=== PATIENT | female | born 1950 | race Caucasian/White ===

== ENCOUNTER → 2017-11-04 08:15 | Outpatient (CLI) | payer MEDICARE, OTHER, SELFPAY ==
[2017-11-04 09:22] LABS: Add Manual Diff / Slide Review NO; Basophils Percent Auto 0.5 % (0-2); Eosinophils Percent Auto 1.7 % (2-4); Hematocrit 40.2 % (36-46); Hemoglobin 13.5 g/dL (12.0-16.0); Lymphocytes Percent Auto 31.1 % (25-40); Mean Corpuscular HGB Conc 33.7 % (30-36); Mean Corpuscular Hemoglobin 30.7 PG (26-34); Mean Corpuscular Volume 91.1 fL (80-100); Monocytes Percent Auto 6.4 % (3-14); Neutrophils Absolute Auto 3000 /uL (3000-5900); Neutrophils Percent Auto 60.3 % (50-75); Platelet Count 271 X10^3/uL (150-400); Red Blood Cell Count 4.41 X10^6/uL (4.0-5.2); Red Cell Distribution Width 14.3 % (11.6-14.8)
[2017-11-04 09:30] LABS: Blood Urea Nitrogen 15 mg/dL (7-17); Carbon Dioxide 29 mmol/L (22-32); Chloride 107 mmol/L (98-107); Cholesterol 185 mg/dL (140-199); Estimated Glomerular Filt Rate > 60.0 mL/min (>60); Glucose 97 mg/dL (80-110); HDL Cholesterol 63 mg/dL (40-60); HEMOLYSIS < 15 (0-50); LDL Cholesterol Calculated 107 mg/dL (<100); Potassium 4.1 mmol/L (3.4-5.1); Sodium 145 mmol/L (137-145); Triglycerides 77 mg/dL (35-150)
[2017-11-04 09:53] LABS: Creatinine Urine Random 165.1 mg/dL
[2017-11-04 09:58] LABS: Microalbumi Creatinin Ratio Ur 5.4 ug/mg CR (<30); Microalbumin Urine Random 0.9 mg/dL (0-1.6)
== END ==
PROVIDERS: PCP Family Medicine; Visit Provider Registered Nurse
DX: I10 Essential (primary) hypertension (principal)
CPT/HCPCS: 36415; 80048; 80061; 82043; 82570; 85025

== ENCOUNTER → 2017-11-10 11:36 | Outpatient (CLI) | payer MEDICARE, OTHER, SELFPAY ==
--- NOTE | 2017-11-10 11:38 | DI.RAD.S_ITS ---
PROCEDURE: XR CHEST 2V INDICATIONS: Crackles on exam x2 weeks to left lung base TECHNIQUE: 2 views of the chest were acquired. COMPARISON: [facility], , CHEST 1 VIEW, 03/19/2015, 13:08. FINDINGS: Surgical changes and devices: None. Lungs and pleura: No pleural effusions or pneumothorax. Lungs are clear. Mediastinum: Mediastinal contours are normal. Heart size is normal. Bones and chest wall: No suspicious bony abnormalities. Soft tissues appear unremarkable. IMPRESSION: No acute cardiopulmonary pathology. Dictated by: Kenton Ruby M.D. on 11/10/2017 at 12:17 Approved by: Kenton Ruby M.D. on 11/10/2017 at 12:18
== END ==
PROVIDERS: PCP Family Medicine; Visit Provider Registered Nurse
DX: R09.89 Other specified symptoms and signs involving the circulatory and respiratory systems (principal)
CPT/HCPCS: 71046

== ENCOUNTER 2017-11-25 18:12 | Emergency (ER) | payer MEDICARE, OTHER, SELFPAY ==
[2017-11-25 18:14] VITALS: BP 155/78; PULSE 79; RESP 14; TEMP 37; O2SAT 98
--- NOTE | 2017-11-25 18:30 | ED.ABDPAIN ---
HPI - Abdominal Pain <Nupur Kim PA-C - Last Filed: 11/25/17 21:59> General Chief Complaint: Abdominal Pain Stated Complaint: PAIN LEFT ABDOMEN AND INTO BACK Time Seen by Provider: 11/25/17 18:30 Source: patient Mode of arrival: ambulatory Limitations: no limitations History of Present Illness HPI narrative: This 67-year-old female comes in due to 2 day history of left-sided abdominal pain that she can also feel in her left flank and back area. She states that this started last night. Pain was worse last night, increased with pressure ( she could lie on her stomach or that part of her back). She states that she felt pretty good most of the day with some low-grade nagging pain, but had significantly improved since last night. She states that pain has now been worsening again tonight. She denies any exacerbating or alleviating features aside from pressure on the area. She feels bloated. She denies any radiation of pain. She denies any fever, chills, or sweats. She has been eating and drinking normally today. She states that she has had some slight nausea, no vomiting. She had a normal bowel movement today, no blood in the stool. She has had some urinary frequency and urgency since last night, no dysuria or blood in the urine. She denies any new exercises or activity. She denies any new rash. She did travel to [place] over the weekend and had been eating different foods and had been drinking more alcohol ( 3 per day), but nothing to drink yesterday as usual. She states that her Etodolac was increased to 400 mg daily from 300 recently, no other medication changes, and she did not take that today. She denies any recent upper respiratory illness or cough. She denies any chest pain or dyspnea. No new pain or swelling in the extremities or other complaints on systems review such as rash. Related Data Home Medications Medication Instructions Recorded Confirmed cholecalciferol (vitamin D3) 1,000 unit PO QDAY #0 11/23/16 11/25/17 [Vitamin D3] multivitamin [Multiple Vitamins] 1 tab PO QDAY #0 11/23/16 11/25/17 magnesium-potassium 1 tab PO DAILY 11/10/17 11/25/17 Previous Rx's Medication Instructions Recorded escitalopram 20 mg tablet 20 mg PO QDAY #30 tab 08/09/17 etodolac 400 mg tablet 400 mg PO Q12H #60 tab 10/29/17 hydrocodone 5 mg-acetaminophen 325 1 tab PO HSP PRN #20 tab 10/29/17 mg tablet ciprofloxacin HCl 500 mg PO Q12H #14 tab 11/25/17 ondansetron [Zofran ODT] 4 mg PO Q6-8H PRN #8 tab 11/25/17 Allergies Allergy/AdvReac Type Severity Reaction Status Date / Time No Known Drug Allergies Allergy Verified 11/25/17 18:17 Review of Systems <Nupur Kim PA-C - Last Filed: 11/25/17 21:59> Review of Systems All systems reviewed & are unremarkable except as noted in HPI and below PFSH <Nupur Kim PA-C - Last Filed: 11/25/17 21:59> Comment: Occasional ETOH, no street drugs Exam <Nupur Kim PA-C - Last Filed: 11/25/17 21:59> Narrative Exam Narrative: GENERAL APPEARANCE: Patient sitting comfortably, in no distress. HEENT: PERRL, EOMI, no scleral icterus NECK: Supple LUNGS: Clear to auscultation bilaterally. HEART: Rate and rhythm regular, normal S1 and S2, no S3 or S4. ABDOMEN: Soft, nondistended, bowel sounds present x 4 quadrants, no masses palpable, no hepatosplenomegaly. Minimal L. LQ point tenderness without guarding or rebound EXTREMITIES: No edema, no cyanosis, no calf tenderness DERMATOLOGIC: No jaundice or exanthem NEUROLOGIC: Alert and oriented with normal speech and coordination Initial Vital Signs Initial Vital Signs: Vital Signs Temperature 98.6 F 11/25/17 18:14 Pulse Rate 79 11/25/17 18:14 Respiratory Rate 14 11/25/17 18:14 Blood Pressure 155/78 H 11/25/17 18:14 Pulse Oximetry 98 11/25/17 18:14 <Eliz Cortez DO - Last Filed: 11/26/17 06:30> Initial Vital Signs Initial Vital Signs: Vital Signs Temperature 98.6 F 11/25/17 18:14 Pulse Rate 79 11/25/17 18:14 Respiratory Rate 14 11/25/17 18:14 Blood Pressure 155/78 H 11/25/17 18:14 Pulse Oximetry 98 11/25/17 18:14 Course <Nupur Kim PA-C - Last Filed: 11/25/17 21:59> Additional Information: We reviewed lab and CT findings. She does have a dense cyst versus mass in the left kidney. I explained that this may very well have been present for some time and not necessarily the source of her pain. No other acute findings. Patient also has some bacteria in the urine. We discussed doing further workup including ultrasound tonight however she would like to treat for urinary infection and follow up on this with her PCP. We discussed that ultrasound can be done as an outpatient and this may need further workup. We also discussed need to return if any acutely worsening symptoms again and she is agreeable. She does take small amounts of [place] at home for her arthritis as needed, and was feeling more comfortable after a dose of this. Nausea resolved with Zofran. She will sampler pickup prescriptions for Zofran and antibiotic and start the antibiotic this evening. She will call her PCP in the morning for follow-up. Orders Ordered: Discontinued Medications Hydrocodone Bitart/Acetaminophen ([place] 5/325) 1 tab PO NOW ONE Stop: 11/25/17 18:49 Last Admin: 11/25/17 19:04 Dose: 1 tab Sodium Chloride (Normal Saline 0.9%) 1,000 mls @ 1,000 mls/hr IV BOLUS ONE Stop: 11/25/17 19:44 Last Infusion: 11/25/17 20:15 Dose: 0 mls/hr Admin: 11/25/17 19:05 Dose: 1,000 mls/hr Ondansetron HCl (Zofran) 4 mg IV NOW ONE Stop: 11/25/17 18:46 Last Admin: 11/25/17 19:05 Dose: 4 mg Vital Signs - 8 hr 11/25/17 18:14 11/25/17 20:29 Temperature 98.6 F 97.3 F L Pulse Rate 79 63 Respiratory Rate 14 14 Blood Pressure 155/78 H 161/82 H Pulse Oximetry 98 98 <Eliz Cortez DO - Last Filed: 11/26/17 06:30> Orders Ordered: Discontinued Medications Hydrocodone Bitart/Acetaminophen ([place] 5/325) 1 tab PO NOW ONE Stop: 11/25/17 18:49 Last Admin: 11/25/17 19:04 Dose: 1 tab Sodium Chloride (Normal Saline 0.9%) 1,000 mls @ 1,000 mls/hr IV BOLUS ONE Stop: 11/25/17 19:44 Last Infusion: 11/25/17 20:15 Dose: 0 mls/hr Admin: 11/25/17 19:05 Dose: 1,000 mls/hr Ondansetron HCl (Zofran) 4 mg IV NOW ONE Stop: 11/25/17 18:46 Last Admin: 11/25/17 19:05 Dose: 4 mg Vital Signs - 8 hr 11/25/17 18:14 11/25/17 20:29 Temperature 98.6 F 97.3 F L Pulse Rate 79 63 Respiratory Rate 14 14 Blood Pressure 155/78 H 161/82 H Pulse Oximetry 98 98 MDM - Abdominal Pain <Nupur Kim PA-C - Last Filed: 11/25/17 21:59> Lab Data Result diagrams: 11/25/17 18:50 11/25/17 18:50 Lab Results 11/25/17 11/25/17 11/25/17 Range/Units 18:50 18:50 18:50 WBC 7.6 (4.5-11.0) X10^3/uL RBC 4.43 (4.0-5.2) X10^6/uL Hgb 13.5 (12.0-16.0) g/dL Hct 40.4 (36-46) % MCV 91.3 (80-100) fL MCH 30.5 (26-34) PG MCHC 33.4 (30-36) % RDW 14.1 (11.6-14.8) % Plt Count 263 (150-400) X10^3/uL Neut % (Auto) 60.2 (50-75) % Lymph % (Auto) 30.8 (25-40) % [place] % (Auto) 6.9 (3-14) % Eos % (Auto) 1.3 L (2-4) % Baso % (Auto) 0.8 (0-2) % Neut # (Auto) 4600 (3764-4164) /uL Sodium 140 (137-145) mmol/L Potassium 3.9 (3.4-5.1) mmol/L Chloride 105 (98-107) mmol/L Carbon Dioxide 26 (22-32) mmol/L BUN 19 H (7-17) mg/dL Creatinine 0.50 L (0.52-1.04) mg/dL Estimated GFR > 60.0 (>60) mL/min BUN/Creatinine Ratio 38.0 H (6-22) Glucose 101 (80-110) mg/dL Calcium 9.3 (8.4-10.2) mg/dL Total Bilirubin 0.3 (0.2-1.3) mg/dL AST 26 (14-36) IU/L ALT 24 (9-52) IU/L Alkaline Phosphatase 72 (38-126) U/L Total Protein 6.6 (6.3-8.2) g/dL Albumin 4.1 (3.5-5.0) g/dL Globulin 2.5 (1.7-4.1) g/dL Albumin/Globulin Ratio 1.6 (1.0-2.8) Lipase 87 (23-300) U/L Urine RBC 0-1/hpf (0-5/HPF) Urine WBC 5-10/hpf H (0-5/HPF) Ur Squamous Epith Cells 0-1 /hpf Urine Bacteria Occasional (0-1) (None) Ur Culture Indicated? Specimen cultured Micro UA Comment Not Reportable Point of care testing: Urine Dip Bedside Urine Glucose Negative Bedside Urine Bilirubin +++ 4 Bedside Urine Ketone - Negative Urine Specific [place] 1.020 Bedside Urine Occult Blood - Negative Bedside Urine pH 6.0 Bedside Urine Protein - Negative Bedside Urine Urobilinogen - Negative Bedside Urine Nitrite - Negative Bedside Urine Leukocytes + [address] scan - abdomen: Radiologist's impression: [place] [address] CT Scan Report Signed Patient: Jada Leon [facility]#: [id number] : 1950cct:[id number] Age/Sex: 67 / FDate of Service: 11/25/17 Loc: ED Accession Number: [id number] Procedure: CT abdomen pelvis w con Ordering Provider: Nupur Kim P.A-C PROCEDURE: CT ABDOMEN PELVIS W CON INDICATIONS: Left upper quadrant and flank pain TECHNIQUE: After the administration of intravenous contrast, 5 mm thick sections acquired from the diaphragm to the symphysis. 5 mm coronal and sagittal reformats were acquired. For radiation dose reduction, the following was used: automated exposure control, adjustment of mA and/or kV according to patient size. COMPARISON: None. FINDINGS: Image quality: Excellent. ABDOMEN: Lung bases: There is mild atelectasis and scarring in the lung bases. Heart size is normal. A small hiatal hernia is present. Solid organs: There is a punctate hyperdensity in the right hepatic dome which is nonspecific but likely represents a cyst. Gallbladder appears within normal limits without calcified gallstones. Biliary system is non dilated. Pancreas enhances normally. Spleen is normal in size and enhancement. There is nodular thickening of the left adrenal gland. Kidneys demonstrate no hydronephrosis. There are bilateral parapelvic cysts. Within the left renal cortex of the interpolar region, there is an ovoid hypodense structure measuring 2.1 x 1.7 cm which may represent a hyperdense cyst or solid mass. Peritoneum and bowel: Bowel loops demonstrate normal wall thickness and caliber. No evidence of appendicitis. There is colonic diverticulosis without acute diverticulitis. No free fluid or air. Nodes and vessels: No retroperitoneal or mesenteric adenopathy by size criteria. Aorta and inferior vena cava are normal in size. Miscellaneous: No ventral hernias. PELVIS: Genitourinary: Bladder wall thickness is normal. Miscellaneous: No inguinal hernias or adenopathy. Bones: No suspicious bony lesions. No vertebral body compression fractures. IMPRESSION: 1. Hyperdense left renal cyst or solid mass. Initial further evaluation may be obtained with ultrasound. 2. Colonic diverticulosis without acute diverticulitis. 3. Small hiatal hernia. Dictated by: Moises Lizarraga M.D. on 11/25/2017 at 19:28 Approved by: Moises Lizarraga M.D. on 11/25/2017 at 19:33 <Eliz Cortez DO - Last Filed: 11/26/17 06:30> Lab Data Lab Results 11/25/17 11/25/17 11/25/17 Range/Units 18:50 18:50 18:50 WBC 7.6 (4.5-11.0) X10^3/uL RBC 4.43 (4.0-5.2) X10^6/uL Hgb 13.5 (12.0-16.0) g/dL Hct 40.4 (36-46) % MCV 91.3 (80-100) fL MCH 30.5 (26-34) PG MCHC 33.4 (30-36) % RDW 14.1 (11.6-14.8) % Plt Count 263 (150-400) X10^3/uL Neut % (Auto) 60.2 (50-75) % Lymph % (Auto) 30.8 (25-40) % [place] % (Auto) 6.9 (3-14) % Eos % (Auto) 1.3 L (2-4) % Baso % (Auto) 0.8 (0-2) % Neut # (Auto) 4600 (0380-0223) /uL Sodium 140 (137-145) mmol/L Potassium 3.9 (3.4-5.1) mmol/L Chloride 105 (98-107) mmol/L Carbon Dioxide 26 (22-32) mmol/L BUN 19 H (7-17) mg/dL Creatinine 0.50 L (0.52-1.04) mg/dL Estimated GFR > 60.0 (>60) mL/min BUN/Creatinine Ratio 38.0 H (6-22) Glucose 101 (80-110) mg/dL Calcium 9.3 (8.4-10.2) mg/dL Total Bilirubin 0.3 (0.2-1.3) mg/dL AST 26 (14-36) IU/L ALT 24 (9-52) IU/L Alkaline Phosphatase 72 (38-126) U/L Total Protein 6.6 (6.3-8.2) g/dL Albumin 4.1 (3.5-5.0) g/dL Globulin 2.5 (1.7-4.1) g/dL Albumin/Globulin Ratio 1.6 (1.0-2.8) Lipase 87 (23-300) U/L Urine RBC 0-1/hpf (0-5/HPF) Urine WBC 5-10/hpf H (0-5/HPF) Ur Squamous Epith Cells 0-1 /hpf Urine Bacteria Occasional (0-1) (None) Ur Culture Indicated? Specimen cultured Micro UA Comment Not Reportable Point of care testing: Urine Dip Bedside Urine Glucose Negative Bedside Urine Bilirubin +++ 4 Bedside Urine Ketone - Negative Urine Specific [place] 1.020 Bedside Urine Occult Blood - Negative Bedside Urine pH 6.0 Bedside Urine Protein - Negative Bedside Urine Urobilinogen - Negative Bedside Urine Nitrite - Negative Bedside Urine Leukocytes + 70 Esterase Discharge Plan Departure Patient Disposition: Home Clinical Impression: Left lateral abdominal pain Discharge Date/Time: 11/25/17 20:29 Interventions: ED Discharge Assessment Last Done: 11/25/17 20:29 Instructions: DI for Abdominal Pain-Adult Activity Restrictions/Additional Instructions: Please return as we talked about if you have any acutely worsening symptoms. Otherwise, please call your primary care provider tomorrow and let them know you were seen in the emergency room. I have prescribed the antibiotic Cipro, which you have taken without problems before, for possible kidney infection. I have also prescribed nausea medicine for you (the same as you had in the IV), and you can take your hydrocodone / acetaminophen for pain as needed along with your usual Etodolac. You should follow-up in a few days for recheck on your infection as the urine cultures will be back then. You also need to have a follow-up imaging study on your left kidney as there is a lump there and the radiologist is not sure whether it is a cyst or solid. We frequently see spots on the kidneys and this may not be related to your pain, but it is very important that you follow-up. The radiologist has recommended an ultrasound for this, which can be done as an outpatient. Prescriptions: New ciprofloxacin HCl 500 mg tablet 500 mg PO Q12H Qty: 14 RF: 0 ondansetron [Zofran ODT] 4 mg tablet,disintegrating 4 mg PO Q6-8H PRN (Reason: nausea and vomiting) Qty: 8 RF: 0 No Action multivitamin [Multiple Vitamins] 1 EACH tablet 1 tab PO QDAY Qty: 0 RF: 0 cholecalciferol (vitamin D3) [Vitamin D3] 1,000 UNIT tablet 1,000 unit PO QDAY Qty: 0 RF: 0 escitalopram oxalate 20 mg tablet 20 mg PO QDAY Qty: 30 RF: 5 magnesium-potassium 1 tab PO DAILY RF: 0 etodolac 400 mg tablet 400 mg PO Q12H Qty: 60 RF: 3 hydrocodone-acetaminophen 5-325 mg tablet 1 tab PO HSP PRN (Reason: pain) Qty: 20 RF: 0 Referrals: Nadia Cat ARNP [[facility] [employer] [facility]] - <Eliz Cortez DO - Last Filed: 11/26/17 06:30> Cosign ED Attending Cosignature Attestation: I was immediately available in the department for consultation. This documentation has been reviewed and I agree with assessment and plan. Supervised by Eliz Cortez DO
--- NOTE | 2017-11-25 18:45 | DI.CT.S_ITS ---
PROCEDURE: CT ABDOMEN PELVIS W CON INDICATIONS: Left upper quadrant and flank pain TECHNIQUE: After the administration of intravenous contrast, 5 mm thick sections acquired from the diaphragm to the symphysis. 5 mm coronal and sagittal reformats were acquired. For radiation dose reduction, the following was used: automated exposure control, adjustment of mA and/or kV according to patient size. COMPARISON: None. FINDINGS: Image quality: Excellent. ABDOMEN: Lung bases: There is mild atelectasis and scarring in the lung bases. Heart size is normal. A small hiatal hernia is present. Solid organs: There is a punctate hyperdensity in the right hepatic dome which is nonspecific but likely represents a cyst. Gallbladder appears within normal limits without calcified gallstones. Biliary system is non dilated. Pancreas enhances normally. Spleen is normal in size and enhancement. There is nodular thickening of the left adrenal gland. Kidneys demonstrate no hydronephrosis. There are bilateral parapelvic cysts. Within the left renal cortex of the interpolar region, there is an ovoid hypodense structure measuring 2.1 x 1.7 cm which may represent a hyperdense cyst or solid mass. Peritoneum and bowel: Bowel loops demonstrate normal wall thickness and caliber. No evidence of appendicitis. There is colonic diverticulosis without acute diverticulitis. No free fluid or air. Nodes and vessels: No retroperitoneal or mesenteric adenopathy by size criteria. Aorta and inferior vena cava are normal in size. Miscellaneous: No ventral hernias. PELVIS: Genitourinary: Bladder wall thickness is normal. Miscellaneous: No inguinal hernias or adenopathy. Bones: No suspicious bony lesions. No vertebral body compression fractures. IMPRESSION: 1. Hyperdense left renal cyst or solid mass. Initial further evaluation may be obtained with ultrasound. 2. Colonic diverticulosis without acute diverticulitis. 3. Small hiatal hernia. Dictated by: Moises Lizarraga M.D. on 11/25/2017 at 19:28 Approved by: Moises Lizarraga M.D. on 11/25/2017 at 19:33
--- NOTE | 2017-11-25 18:58 | ED_ITS ---
HPI - Abdominal Pain <Nupur Kim PA-C - Last Filed: 11/25/17 21:59> General Chief Complaint: Abdominal Pain Stated Complaint: PAIN LEFT ABDOMEN AND INTO BACK Time Seen by Provider: 11/25/17 18:30 Source: patient Mode of arrival: ambulatory Limitations: no limitations History of Present Illness HPI narrative: This 67-year-old female comes in due to 2 day history of left- sided abdominal pain that she can also feel in her left flank and back area. She states that this started last night. Pain was worse last night, increased with pressure ( she could lie on her stomach or that part of her back). She states that she felt pretty good most of the day with some low-grade nagging pain, but had significantly improved since last night. She states that pain has now been worsening again tonight. She denies any exacerbating or alleviating features aside from pressure on the area. She feels bloated. She denies any radiation of pain. She denies any fever, chills, or sweats. She has been eating and drinking normally today. She states that she has had some slight nausea, no vomiting. She had a normal bowel movement today, no blood in the stool. She has had some urinary frequency and urgency since last night, no dysuria or blood in the urine. She denies any new exercises or activity. She denies any new rash. She did travel to [place] over the weekend and had been eating different foods and had been drinking more alcohol ( 3 per day), but nothing to drink yesterday as usual. She states that her Etodolac was increased to 400 mg daily from 300 recently, no other medication changes, and she did not take that today. She denies any recent upper respiratory illness or cough. She denies any chest pain or dyspnea. No new pain or swelling in the extremities or other complaints on systems review such as rash. Related Data Home Medications Medication Instructions Recorded Confirmed cholecalciferol (vitamin D3) 1,000 unit PO QDAY #0 11/23/16 11/25/17 [Vitamin D3] multivitamin [Multiple Vitamins] 1 tab PO QDAY #0 11/23/16 11/25/17 magnesium-potassium 1 tab PO DAILY 11/10/17 11/25/17 Previous Rx's Medication Instructions Recorded escitalopram 20 mg tablet 20 mg PO QDAY #30 tab 08/09/17 etodolac 400 mg tablet 400 mg PO Q12H #60 tab 10/29/17 hydrocodone 5 mg-acetaminophen 325 1 tab PO HSP PRN #20 tab 10/29/17 mg tablet ciprofloxacin HCl 500 mg PO Q12H #14 tab 11/25/17 ondansetron [Zofran ODT] 4 mg PO Q6-8H PRN #8 tab 11/25/17 Allergies Allergy/AdvReac Type Severity Reaction Status Date / Time No Known Drug Allergies Allergy Verified 11/25/17 18:17 Review of Systems <Nupur Kim PA-C - Last Filed: 11/25/17 21:59> Review of Systems All systems reviewed & are unremarkable except as noted in HPI and below PFSH <Nupur Kim PA-C - Last Filed: 11/25/17 21:59> Comment: Occasional ETOH, no street drugs Exam <Nupur Kim PA-C - Last Filed: 11/25/17 21:59> Narrative Exam Narrative: GENERAL APPEARANCE: Patient sitting comfortably, in no distress. HEENT: PERRL, EOMI, no scleral icterus NECK: Supple LUNGS: Clear to auscultation bilaterally. HEART: Rate and rhythm regular, normal S1 and S2, no S3 or S4. ABDOMEN: Soft, nondistended, bowel sounds present x 4 quadrants, no masses palpable, no hepatosplenomegaly. Minimal L. LQ point tenderness without guarding or rebound EXTREMITIES: No edema, no cyanosis, no calf tenderness DERMATOLOGIC: No jaundice or exanthem NEUROLOGIC: Alert and oriented with normal speech and coordination Initial Vital Signs Initial Vital Signs: Vital Signs Temperature 98.6 F 11/25/17 18:14 Pulse Rate 79 11/25/17 18:14 Respiratory Rate 14 11/25/17 18:14 Blood Pressure 155/78 H 11/25/17 18:14 Pulse Oximetry 98 11/25/17 18:14 <Eliz Cortez DO - Last Filed: 11/26/17 06:30> Initial Vital Signs Initial Vital Signs: Vital Signs Temperature 98.6 F 11/25/17 18:14 Pulse Rate 79 11/25/17 18:14 Respiratory Rate 14 11/25/17 18:14 Blood Pressure 155/78 H 11/25/17 18:14 Pulse Oximetry 98 11/25/17 18:14 Course <Nupur Kim PA-C - Last Filed: 11/25/17 21:59> Additional Information: We reviewed lab and CT findings. She does have a dense cyst versus mass in the left kidney. I explained that this may very well have been present for some time and not necessarily the source of her pain. No other acute findings. Patient also has some bacteria in the urine. We discussed doing further workup including ultrasound tonight however she would like to treat for urinary infection and follow up on this with her PCP. We discussed that ultrasound can be done as an outpatient and this may need further workup. We also discussed need to return if any acutely worsening symptoms again and she is agreeable. She does take small amounts of [place] at home for her arthritis as needed, and was feeling more comfortable after a dose of this. Nausea resolved with Zofran. She will berry picker prescriptions for Zofran and antibiotic and start the antibiotic this evening. She will call her PCP in the morning for follow-up. Orders Ordered: Discontinued Medications Hydrocodone Bitart/Acetaminophen ([place] 5/325) 1 tab PO NOW ONE Stop: 11/25/17 18:49 Last Admin: 11/25/17 19:04 Dose: 1 tab Sodium Chloride (Normal Saline 0.9%) 1,000 mls @ 1,000 mls/hr IV BOLUS ONE Stop: 11/25/17 19:44 Last Infusion: 11/25/17 20:15 Dose: 0 mls/hr Admin: 11/25/17 19:05 Dose: 1,000 mls/hr Ondansetron HCl (Zofran) 4 mg IV NOW ONE Stop: 11/25/17 18:46 Last Admin: 11/25/17 19:05 Dose: 4 mg Vital Signs - 8 hr 11/25/17 18:14 11/25/17 20:29 Temperature 98.6 F 97.3 F L Pulse Rate 79 63 Respiratory Rate 14 14 Blood Pressure 155/78 H 161/82 H Pulse Oximetry 98 98 <Eliz Cortez DO - Last Filed: 11/26/17 06:30> Orders Ordered: Discontinued Medications Hydrocodone Bitart/Acetaminophen ([place] 5/325) 1 tab PO NOW ONE Stop: 11/25/17 18:49 Last Admin: 11/25/17 19:04 Dose: 1 tab Sodium Chloride (Normal Saline 0.9%) 1,000 mls @ 1,000 mls/hr IV BOLUS ONE Stop: 11/25/17 19:44 Last Infusion: 11/25/17 20:15 Dose: 0 mls/hr Admin: 11/25/17 19:05 Dose: 1,000 mls/hr Ondansetron HCl (Zofran) 4 mg IV NOW ONE Stop: 11/25/17 18:46 Last Admin: 11/25/17 19:05 Dose: 4 mg Vital Signs - 8 hr 11/25/17 18:14 11/25/17 20:29 Temperature 98.6 F 97.3 F L Pulse Rate 79 63 Respiratory Rate 14 14 Blood Pressure 155/78 H 161/82 H Pulse Oximetry 98 98 MDM - Abdominal Pain <Nupur Kim PA-C - Last Filed: 11/25/17 21:59> Lab Data Result diagrams: 11/25/17 18:50 11/25/17 18:50 Lab Results 11/25/17 11/25/17 11/25/17 Range/Units 18:50 18:50 18:50 WBC 7.6 (4.5-11.0) X10^3/uL RBC 4.43 (4.0-5.2) X10^6/uL Hgb 13.5 (12.0-16.0) g/dL Hct 40.4 (36-46) % MCV 91.3 (80-100) fL MCH 30.5 (26-34) PG MCHC 33.4 (30-36) % RDW 14.1 (11.6-14.8) % Plt Count 263 (150-400) X10^3/uL Neut % (Auto) 60.2 (50-75) % Lymph % (Auto) 30.8 (25-40) % Will % (Auto) 6.9 (3-14) % Eos % (Auto) 1.3 L (2-4) % Baso % (Auto) 0.8 (0-2) % Neut # (Auto) 4600 (1437-7169) /uL Sodium 140 (137-145) mmol/L Potassium 3.9 (3.4-5.1) mmol/L Chloride 105 (98-107) mmol/L Carbon Dioxide 26 (22-32) mmol/L BUN 19 H (7-17) mg/dL Creatinine 0.50 L (0.52-1.04) mg/dL Estimated GFR > 60.0 (>60) mL/min BUN/Creatinine Ratio 38.0 H (6-22) Glucose 101 (80-110) mg/dL Calcium 9.3 (8.4-10.2) mg/dL Total Bilirubin 0.3 (0.2-1.3) mg/dL AST 26 (14-36) IU/L ALT 24 (9-52) IU/L Alkaline Phosphatase 72 (38-126) U/L Total Protein 6.6 (6.3-8.2) g/dL Albumin 4.1 (3.5-5.0) g/dL Globulin 2.5 (1.7-4.1) g/dL Albumin/Globulin Ratio 1.6 (1.0-2.8) Lipase 87 (23-300) U/L Urine RBC 0-1/hpf (0-5/HPF) Urine WBC 5-10/hpf H (0-5/HPF) Ur Squamous Epith Cells 0-1 /hpf Urine Bacteria Occasional (0-1) (None) Ur Culture Indicated? Specimen cultured Micro UA Comment Not Reportable Point of care testing: Urine Dip Bedside Urine Glucose Negative Bedside Urine Bilirubin +++ 4 Bedside Urine Ketone - Negative Urine Specific [place] 1.020 Bedside Urine Occult Blood - Negative Bedside Urine pH 6.0 Bedside Urine Protein - Negative Bedside Urine Urobilinogen - Negative Bedside Urine Nitrite - Negative Bedside Urine Leukocytes + [address] scan - abdomen: Radiologist's impression: [place] [address] CT Scan Report Signed Patient: Jada Leon [facility]#: [id number] : 1950cct:[id number] Age/Sex: 67 / FDate of Service: 11/25/17 Loc: ED Accession Number: [id number] Procedure: CT abdomen pelvis w con Ordering Provider: Nupur Kim P.A-C PROCEDURE: CT ABDOMEN PELVIS W CON INDICATIONS: Left upper quadrant and flank pain TECHNIQUE: After the administration of intravenous contrast, 5 mm thick sections acquired from the diaphragm to the symphysis. 5 mm coronal and sagittal reformats were acquired. For radiation dose reduction, the following was used: automated exposure control, adjustment of mA and/or kV according to patient size. COMPARISON: None. FINDINGS: Image quality: Excellent. ABDOMEN: Lung bases: There is mild atelectasis and scarring in the lung bases. Heart size is normal. A small hiatal hernia is present. Solid organs: There is a punctate hyperdensity in the right hepatic dome which is nonspecific but likely represents a cyst. Gallbladder appears within normal limits without calcified gallstones. Biliary system is non dilated. Pancreas enhances normally. Spleen is normal in size and enhancement. There is nodular thickening of the left adrenal gland. Kidneys demonstrate no hydronephrosis. There are bilateral parapelvic cysts. Within the left renal cortex of the interpolar region, there is an ovoid hypodense structure measuring 2.1 x 1.7 cm which may represent a hyperdense cyst or solid mass. Peritoneum and bowel: Bowel loops demonstrate normal wall thickness and caliber. No evidence of appendicitis. There is colonic diverticulosis without acute diverticulitis. No free fluid or air. Nodes and vessels: No retroperitoneal or mesenteric adenopathy by size criteria. Aorta and inferior vena cava are normal in size. Miscellaneous: No ventral hernias. PELVIS: Genitourinary: Bladder wall thickness is normal. Miscellaneous: No inguinal hernias or adenopathy. Bones: No suspicious bony lesions. No vertebral body compression fractures. IMPRESSION: 1. Hyperdense left renal cyst or solid mass. Initial further evaluation may be obtained with ultrasound. 2. Colonic diverticulosis without acute diverticulitis. 3. Small hiatal hernia. Dictated by: Moises Lizarraga M.D. on 11/25/2017 at 19:28 Approved by: Moises Lizarraga M.D. on 11/25/2017 at 19:33 <Eliz Cortez DO - Last Filed: 11/26/17 06:30> Lab Data Lab Results 11/25/17 11/25/17 11/25/17 Range/Units 18:50 18:50 18:50 WBC 7.6 (4.5-11.0) X10^3/uL RBC 4.43 (4.0-5.2) X10^6/uL Hgb 13.5 (12.0-16.0) g/dL Hct 40.4 (36-46) % MCV 91.3 (80-100) fL MCH 30.5 (26-34) PG MCHC 33.4 (30-36) % RDW 14.1 (11.6-14.8) % Plt Count 263 (150-400) X10^3/uL Neut % (Auto) 60.2 (50-75) % Lymph % (Auto) 30.8 (25-40) % Will % (Auto) 6.9 (3-14) % Eos % (Auto) 1.3 L (2-4) % Baso % (Auto) 0.8 (0-2) % Neut # (Auto) 4600 (4436-7600) /uL Sodium 140 (137-145) mmol/L Potassium 3.9 (3.4-5.1) mmol/L Chloride 105 (98-107) mmol/L Carbon Dioxide 26 (22-32) mmol/L BUN 19 H (7-17) mg/dL Creatinine 0.50 L (0.52-1.04) mg/dL Estimated GFR > 60.0 (>60) mL/min BUN/Creatinine Ratio 38.0 H (6-22) Glucose 101 (80-110) mg/dL Calcium 9.3 (8.4-10.2) mg/dL Total Bilirubin 0.3 (0.2-1.3) mg/dL AST 26 (14-36) IU/L ALT 24 (9-52) IU/L Alkaline Phosphatase 72 (38-126) U/L Total Protein 6.6 (6.3-8.2) g/dL Albumin 4.1 (3.5-5.0) g/dL Globulin 2.5 (1.7-4.1) g/dL Albumin/Globulin Ratio 1.6 (1.0-2.8) Lipase 87 (23-300) U/L Urine RBC 0-1/hpf (0-5/HPF) Urine WBC 5-10/hpf H (0-5/HPF) Ur Squamous Epith Cells 0-1 /hpf Urine Bacteria Occasional (0-1) (None) Ur Culture Indicated? Specimen cultured Micro UA Comment Not Reportable Point of care testing: Urine Dip Bedside Urine Glucose Negative Bedside Urine Bilirubin +++ 4 Bedside Urine Ketone - Negative Urine Specific [place] 1.020 Bedside Urine Occult Blood - Negative Bedside Urine pH 6.0 Bedside Urine Protein - Negative Bedside Urine Urobilinogen - Negative Bedside Urine Nitrite - Negative Bedside Urine Leukocytes + 70 Esterase Discharge Plan Departure Patient Disposition: Home Clinical Impression: Left lateral abdominal pain Discharge Date/Time: 11/25/17 20:29 Interventions: ED Discharge Assessment Last Done: 11/25/17 20:29 Instructions: DI for Abdominal Pain-Adult Activity Restrictions/Additional Instructions: Please return as we talked about if you have any acutely worsening symptoms. Otherwise, please call your primary care provider tomorrow and let them know you were seen in the emergency room. I have prescribed the antibiotic Cipro, which you have taken without problems before, for possible kidney infection. I have also prescribed nausea medicine for you (the same as you had in the IV), and you can take your hydrocodone / acetaminophen for pain as needed along with your usual Etodolac. You should follow-up in a few days for recheck on your infection as the urine cultures will be back then. You also need to have a follow-up imaging study on your left kidney as there is a lump there and the radiologist is not sure whether it is a cyst or solid. We frequently see spots on the kidneys and this may not be related to your pain, but it is very important that you follow-up. The radiologist has recommended an ultrasound for this, which can be done as an outpatient. Prescriptions: New ciprofloxacin HCl 500 mg tablet 500 mg PO Q12H Qty: 14 RF: 0 ondansetron [Zofran ODT] 4 mg tablet,disintegrating 4 mg PO Q6-8H PRN (Reason: nausea and vomiting) Qty: 8 RF: 0 No Action multivitamin [Multiple Vitamins] 1 EACH tablet 1 tab PO QDAY Qty: 0 RF: 0 cholecalciferol (vitamin D3) [Vitamin D3] 1,000 UNIT tablet 1,000 unit PO QDAY Qty: 0 RF: 0 escitalopram oxalate 20 mg tablet 20 mg PO QDAY Qty: 30 RF: 5 magnesium-potassium 1 tab PO DAILY RF: 0 etodolac 400 mg tablet 400 mg PO Q12H Qty: 60 RF: 3 hydrocodone-acetaminophen 5-325 mg tablet 1 tab PO HSP PRN (Reason: pain) Qty: 20 RF: 0 Referrals: Nadia Cat ARNP [[employer]] - <Eliz Cortez DO - Last Filed: 11/26/17 06:30> Cosign ED Attending Cosignature Attestation: I was immediately available in the department for consultation. This documentation has been reviewed and I agree with assessment and plan. Supervised by Eliz Cortez DO
[2017-11-25 19:00] LABS: Add Manual Diff / Slide Review NO; Basophils Percent Auto 0.8 % (0-2); Eosinophils Percent Auto 1.3 % (2-4); Hematocrit 40.4 % (36-46); Hemoglobin 13.5 g/dL (12.0-16.0); Lymphocytes Percent Auto 30.8 % (25-40); Mean Corpuscular HGB Conc 33.4 % (30-36); Mean Corpuscular Hemoglobin 30.5 PG (26-34); Mean Corpuscular Volume 91.3 fL (80-100); Monocytes Percent Auto 6.9 % (3-14); Neutrophils Absolute Auto 4600 /uL (3000-5900); Neutrophils Percent Auto 60.2 % (50-75); Platelet Count 263 X10^3/uL (150-400); Red Blood Cell Count 4.43 X10^6/uL (4.0-5.2); Red Cell Distribution Width 14.1 % (11.6-14.8); White Blood Cell Count 7.6 X10^3/uL (4.5-11.0)
[2017-11-25] MEDS: HYDROCODONE/ACET 5/325 TABLET 1 TAB PO (19:04)
[2017-11-25] MEDS: SODIUM CHLORIDE 0.9% 1,000 ML 1000 ML IV (19:05)
[2017-11-25] MEDS: ONDANSETRON 4 MG/2 ML INJ IV (19:05)
[2017-11-25 19:09] LABS: Bacteria Urine Occasional (0-1); Culture Indicated Urine Specimen Cultured; RBC Urine 0-1/HPF (0-5/HPF); Squamous Epithelial Cell Urine 0-1 /HPF; WBC Urine 5-10/HPF (0-5/HPF)
[2017-11-25 19:11] LABS: Alanine Aminotransferase 24 IU/L (9-52); Albumin 4.1 g/dL (3.5-5.0); Albumin Globulin Ratio 1.6 (1.0-2.8); Alkaline Phosphatase 72 U/L (38-126); Aspartate Aminotransferase 26 IU/L (14-36); Bilirubin Total 0.3 mg/dL (0.2-1.3); Blood Urea Nitrogen 19 mg/dL (7-17); Calcium 9.3 mg/dL (8.4-10.2); Carbon Dioxide 26 mmol/L (22-32); Chloride 105 mmol/L (98-107); Estimated Glomerular Filt Rate > 60.0 mL/min (>60); Globulin 2.5 g/dL (1.7-4.1); Glucose 101 mg/dL (80-110); HEMOLYSIS 33 (0-50); Lipase 87 U/L (23-300); Potassium 3.9 mmol/L (3.4-5.1); Sodium 140 mmol/L (137-145); Total Protein 6.6 g/dL (6.3-8.2)
[2017-11-25 20:29] VITALS: BP 161/82; PULSE 63; RESP 14; TEMP 36.3; O2SAT 98
== END 2017-11-25 20:29 | disposition home or self-care (01) ==
PROVIDERS: Emergency Provider Internal Medicine; Family Provider Family Medicine; PCP Family Medicine
DX: R10.9 Unspecified abdominal pain (principal)
CPT/HCPCS: 36591; 74177; 80053; 81003; 81015; 83690; 85025; 87086; 96361; 96374; 99283; 99285; J2405; Q9967

== ENCOUNTER → 2017-12-02 13:37 | Outpatient (CLI) | payer MEDICARE, OTHER, SELFPAY ==
--- NOTE | 2017-12-02 13:39 | DI.US.S_ITS ---
PROCEDURE: US RENAL COMPLETE INDICATIONS: Renal mass noted on CT TECHNIQUE: Real-time scanning was performed of the kidneys and bladder, with image documentation. COMPARISON: [facility], CT, CT ABDOMEN PELVIS W CON, 11/25/2017, 18:47. FINDINGS: Kidneys: There is a hypoechoic solid appearing mass that measures 2.6 by 2 x 2 centimeters along the mid to inferior aspect of the left kidney cortex. This corresponds to the mass seen on CT. Kidneys are normal in size. Right kidney measures 11.9 cm long; left kidney measures 12.4 cm long. Right renal cortical thickness is 1.7 cm; left renal cortical thickness is 1.8 cm. Renal cortical echotexture is normal. No hydronephrosis or nephrolithiasis. Bladder: Pre-void bladder volume is 27 mL. No postvoid residual patient was obtained. Miscellaneous: No free pelvic fluid. IMPRESSION: 2.6 cm solid appearing mass confirmed at the mid to inferior aspect of the left kidney. A urology consult is now recommended. Dictated by: Kaden Albarado M.D. on 12/02/2017 at 13:42 Approved by: Kaden Albarado M.D. on 12/02/2017 at 13:47
== END ==
PROVIDERS: Family Provider Family Medicine; PCP Family Medicine; Visit Provider Registered Nurse
DX: N28.9 Disorder of kidney and ureter, unspecified (principal)
CPT/HCPCS: 76770

== ENCOUNTER → 2020-01-10 06:49 | Outpatient (CLI) | payer MEDICARE, OTHER, SELFPAY ==
[2020-01-10 07:01] LABS: Bacteria Urine None Seen; RBC Urine None Seen (0-5/HPF)
[2020-01-10 08:17] LABS: Appearance Urine UA CLEAR; Bilirubin Urine UA 3+ (NEGATIVE); Color Urine UA YELLOW; Glucose Urine UA NEGATIVE (Negative); Ketones Urine UA NEGATIVE (NEGATIVE); Leukocyte Esterase Urine UA 1+ (NEGATIVE); Nitrite Urine UA NEGATIVE (Negative); Occult Blood Urine UA NEGATIVE (Negative); Protein Urine UA NEGATIVE (Negative); Specific Gravity Urine UA 1.025 (1.000-1.035); Urobilinogen Urine UA 0.2 E.U./dL (0.2)
[2020-01-10 08:21] LABS: Add Manual Diff / Slide Review NO; Basophils Absolute Auto 0 /uL (0-100); Basophils Percent Auto 0.6 % (0-2); Eosinophils Absolute Auto 100 /uL (0-450); Eosinophils Percent Auto 2.2 % (2-4); Hematocrit 41.2 % (36-46); Hemoglobin 13.6 g/dL (12.0-16.0); Lymphocytes Absolute Auto 2100 /uL (1100-4500); Lymphocytes Percent Auto 36.8 % (25-40); Mean Corpuscular Hemoglobin 29.8 PG (26-34); Mean Corpuscular Volume 90.5 fL (80-100); Monocytes Absolute Auto 400 /uL (0-900); Monocytes Percent Auto 6.4 % (3-14); Neutrophils Absolute Auto 3000 /uL (1500-7000); Platelet Count 263 X10^3/uL (150-400); Red Blood Cell Count 4.55 X10^6/uL (4.0-5.2); Red Cell Distribution Width 14.4 % (11.6-14.8); White Blood Cell Count 5.6 X10^3/uL (4.5-11.0)
[2020-01-10 08:26] LABS: Ictotest Urine Negative (Negative)
[2020-01-10 08:27] LABS: Culture Indicated Urine Cult Not Indicated; Squamous Epithelial Cell Urine 10-30 /HPF (0-5/HPF); WBC Urine 5-10/HPF (0-5/HPF)
[2020-01-10 09:11] LABS: Alanine Aminotransferase 18 IU/L (<35); Albumin 4.1 g/dL (3.5-5.0); Albumin Globulin Ratio 1.6 (1.0-2.8); Alkaline Phosphatase 87 U/L (38-126); Aspartate Aminotransferase 24 IU/L (14-36); BUN Creatinine Ratio 29.3 (6-22); Bilirubin Total 0.4 mg/dL (0.2-1.3); Blood Urea Nitrogen 17 mg/dL (7-17); Carbon Dioxide 28 mmol/L (22-32); Chloride 108 mmol/L (98-107); Cholesterol 187 mg/dL (140-199); Estimated Glomerular Filt Rate > 60.0 mL/min (>60); Globulin 2.5 g/dL (1.7-4.1); Glucose 93 mg/dL (80-110); HDL Cholesterol 69 mg/dL (40-60); HEMOLYSIS < 15 (0-50); LDL Cholesterol Calculated 100 mg/dL (<100); Potassium 4.3 mmol/L (3.4-5.1); Sodium 141 mmol/L (137-145); Total Protein 6.6 g/dL (6.3-8.2); Triglycerides 89 mg/dL (35-150)
[2020-01-10 09:17] LABS: Vitamin D 25 Hydroxy (D3) 66.2 ng/mL (30.0-100.0)
[2020-01-10 09:34] LABS: TSH w/ Reflex to FT4 3.55 uIU/mL (0.47-4.68)
== END ==
PROVIDERS: Family Provider Family Medicine; PCP Family Medicine; Referring Provider Family Medicine; Visit Provider Family Medicine
DX: I10 Essential (primary) hypertension (principal); R11.0 Nausea; E78.5 Hyperlipidemia, unspecified; E55.9 Vitamin D deficiency, unspecified
CPT/HCPCS: 36415; 80053; 80061; 81001; 82306; 84443; 85025

== ENCOUNTER → 2020-02-05 15:13 | Outpatient (CLI) | payer MEDICARE, OTHER, SELFPAY ==
[2020-02-05 19:02] LABS: Bacteria Urine None Seen; RBC Urine None Seen (0-5/HPF); WBC Urine None Seen (0-5/HPF)
[2020-02-05 20:01] LABS: Appearance Urine UA CLEAR; Bilirubin Urine UA 3+ (NEGATIVE); Color Urine UA YELLOW; Glucose Urine UA NEGATIVE (Negative); Ketones Urine UA 1+ (NEGATIVE); Leukocyte Esterase Urine UA NEGATIVE (NEGATIVE); Nitrite Urine UA NEGATIVE (Negative); Occult Blood Urine UA NEGATIVE (Negative); Protein Urine UA NEGATIVE (Negative); Specific Gravity Urine UA 1.025 (1.000-1.035); Urobilinogen Urine UA 0.2 E.U./dL (0.2)
[2020-02-05 20:19] LABS: pH Urine UA 5.5 (4.5-8.0)
[2020-02-05 20:23] LABS: Calcium Oxalate Crystals Urine Moderate; Mucus Urine 2+ (Negative)
[2020-02-05 20:25] LABS: Ictotest Urine Negative (Negative)
[2020-02-05 20:36] LABS: Culture Indicated Urine Cult Not Indicated
== END ==
PROVIDERS: Family Provider Family Medicine; PCP Family Medicine; Visit Provider Family Medicine
DX: R82.90 Unspecified abnormal findings in urine (principal); Z90.5 Acquired absence of kidney
CPT/HCPCS: 81001

== ENCOUNTER → 2020-02-29 10:48 | Outpatient (CLI) | payer MEDICARE, OTHER, SELFPAY ==
[2020-02-29 12:04] LABS: COVID19 -Nasal RAPID Negative (Negative)
== END ==
PROVIDERS: PCP Family Medicine; Visit Provider Nurse Practitioner Family
DX: Z01.812 Encounter for preprocedural laboratory examination (principal); Z20.828 Contact with and (suspected) exposure to other viral communicable diseases
CPT/HCPCS: 87635; C9803

== ENCOUNTER → 2020-03-26 10:12 | Outpatient (CLI) | payer MEDICARE, OTHER, SELFPAY ==
[2020-03-26] MEDS: COVID-19 VACC #1, MRNA(MOD) 100 MCG/0.5 ML VIAL IM (10:21)
== END ==
PROVIDERS: PCP Family Medicine; Visit Provider Internal Medicine
DX: Z23 Encounter for immunization (principal)
CPT/HCPCS: 0011A; 91301

== ENCOUNTER → 2020-04-23 10:05 | Outpatient (CLI) | payer MEDICARE, OTHER, SELFPAY ==
[2020-04-23] MEDS: COVID-19 VACC #2, MRNA(MOD) 100 MCG/0.5 ML VIAL IM (10:06)
== END ==
PROVIDERS: PCP Family Medicine; Visit Provider Internal Medicine
DX: Z23 Encounter for immunization (principal)
CPT/HCPCS: 0012A; 91301

== ENCOUNTER → 2020-08-30 08:35 | Outpatient (CLI) | payer MEDICARE, OTHER, SELFPAY ==
--- NOTE | 2020-08-30 08:37 | DI.US.S_ITS ---
PROCEDURE: US RENAL COMPLETE INDICATIONS: h/o renal cancer, back pain TECHNIQUE: Real-time scanning was performed of the kidneys and bladder, with image documentation. COMPARISON: [facility], CT, CT ABDOMEN PELVIS W CON, 11/25/2017, 18:47. [facility], US, US RENAL COMPLETE, 12/02/2017, 13:58. FINDINGS: Kidneys: Kidneys are normal in size. Right kidney measures 11.9 cm long; left kidney measures 10.7 cm long. Right renal cortical thickness is 1.6 cm; left renal cortical thickness is 1.2 cm. Renal cortical echotexture is normal. No hydronephrosis or nephrolithiasis. No suspicious solid mass lesions. There are multiple parapelvic cysts bilaterally. The largest cyst is in the left kidney measuring 2.3 cm. No solid renal masses are identified. Bladder: Pre-void bladder volume is 334 mL. Post-void residual is 0 mL. Pre-void images demonstrate no intraluminal masses or stones. On pre-void images, both ureteral jets are noted with color Doppler interrogation. (Of note, ureteral jets may not be detectable in up to 25% of cases due to insufficient differences in specific gravity between ureteral and bladder urine). Miscellaneous: No free pelvic fluid. IMPRESSION: 1. Multiple peripelvic renal cysts bilaterally. The largest one is in the left kidney measuring 2.3 cm. No solid masses are identified. If there is clinical suspicion for recurrent kidney cancer, CT is suggested for follow-up evaluation. 2. Distended prevoid bladder but no postvoid residual. Both ureteral jets were visualized during the exam. Dictated by: Fabian Henson M.D. on 08/30/2020 at 17:06 Approved by: Fabian Henson M.D. on 08/30/2020 at 17:12
--- NOTE | 2020-08-30 08:37 | DI.US.S_ITS ---
PROCEDURE: US EXTREMITY NONVASC LOWER LT INDICATIONS: masses in popliteal areas, suspect lipomas TECHNIQUE: Real-time scanning was performed of the popliteal fossa , with image documentation. COMPARISON: [facility], , US EXTREMITY NONVASC LOWER RT, 08/30/2020, 8:10. FINDINGS: Multiple subcutaneous soft tissue densities of relative increased echogenicity are identified. They range in size from 1-2 cm. Millard's cyst is present measuring 1.3 x 0.7 x 1.4 cm. IMPRESSION: 1. Millard's cyst is noted. 2. Echogenic soft tissue foci suggestive of lipomas. Dictated by: Glenna Jackson M.D. on 08/30/2020 at 14:12 Approved by: Glenna Jackson M.D. on 08/30/2020 at 14:14
--- NOTE | 2020-08-30 08:37 | DI.US.S_ITS ---
PROCEDURE: US EXTREMITY NONVASC LOWER RT INDICATIONS: masses in popliteal areas, suspect lipomas TECHNIQUE: Real-time scanning was performed of the posterior fossa soft tissue , with image documentation. COMPARISON: None. FINDINGS: Multiple circumscribed areas of relative increased echogenicity are identified ranging from 1.2-2.0 cm. Millard's cyst is noted measuring 2.0 x 0.8 x 1.2 cm. IMPRESSION: Soft tissue foci of relative increased echogenicity most suggestive of lipomas. Dictated by: Glenna Jackson M.D. on 08/30/2020 at 13:22 Approved by: Glenna Jackson M.D. on 08/30/2020 at 13:23
[2020-08-30 09:30] LABS: Bacteria Urine None Seen; RBC Urine None Seen (0-5/HPF); WBC Urine None Seen (0-5/HPF)
[2020-08-30 09:57] LABS: Appearance Urine UA CLEAR; Bilirubin Urine UA 1+ (NEGATIVE); Color Urine UA YELLOW; Glucose Urine UA NEGATIVE (Negative); Ketones Urine UA NEGATIVE (NEGATIVE); Leukocyte Esterase Urine UA NEGATIVE (NEGATIVE); Nitrite Urine UA NEGATIVE (Negative); Occult Blood Urine UA NEGATIVE (Negative); Protein Urine UA NEGATIVE (Negative); Specific Gravity Urine UA <=1.005 (1.000-1.035); Urobilinogen Urine UA 0.2 E.U./dL (0.2)
[2020-08-30 10:20] LABS: Add Manual Diff / Slide Review NO; Basophils Absolute Auto 100 /uL (0-100); Basophils Percent Auto 0.8 % (0-2); Eosinophils Absolute Auto 300 /uL (0-450); Eosinophils Percent Auto 4.6 % (2-4); Hematocrit 41.2 % (36-46); Hemoglobin 13.4 g/dL (12.0-16.0); Lymphocytes Absolute Auto 1800 /uL (1100-4500); Lymphocytes Percent Auto 26.2 % (25-40); Mean Corpuscular HGB Conc 32.6 % (30-36); Mean Corpuscular Hemoglobin 29.7 PG (26-34); Mean Corpuscular Volume 91.2 fL (80-100); Monocytes Absolute Auto 500 /uL (0-900); Monocytes Percent Auto 7.4 % (3-14); Neutrophils Absolute Auto 4100 /uL (1500-7000); Platelet Count 301 X10^3/uL (150-400); Red Blood Cell Count 4.52 X10^6/uL (4.0-5.2); Red Cell Distribution Width 14.4 % (11.6-14.8); White Blood Cell Count 6.8 X10^3/uL (4.5-11.0)
[2020-08-30 10:30] LABS: Culture Indicated Urine Cult Not Indicated; Ictotest Urine Negative (Negative); Urine Comments Microscopic Normal
[2020-08-30 10:35] LABS: Alanine Aminotransferase 20 IU/L (<35); Albumin Globulin Ratio 1.4 (1.0-2.8); Alkaline Phosphatase 93 U/L (38-126); Aspartate Aminotransferase 27 IU/L (14-36); BUN Creatinine Ratio 24.5 (6-22); Bilirubin Total 0.4 mg/dL (0.2-1.3); Blood Urea Nitrogen 12 mg/dL (7-17); Calcium 9.3 mg/dL (8.4-10.2); Carbon Dioxide 27 mmol/L (22-32); Chloride 107 mmol/L (98-107); Estimated Glomerular Filt Rate > 60.0 mL/min (>60); Globulin 2.8 g/dL (1.7-4.1); Glucose 90 mg/dL (80-110); HEMOLYSIS < 15 (0-50); Potassium 4.3 mmol/L (3.4-5.1); Sodium 140 mmol/L (137-145); Total Protein 6.8 g/dL (6.3-8.2)
== END ==
PROVIDERS: PCP Family Medicine; Referring Provider Family Medicine; Visit Provider Family Medicine
DX: M54.9 Dorsalgia, unspecified (principal); D17.9 Benign lipomatous neoplasm, unspecified; N28.1 Cyst of kidney, acquired; M71.21 Synovial cyst of popliteal space [Baker], right knee; Z85.528 Personal history of other malignant neoplasm of kidney
CPT/HCPCS: 36415; 76770; 76882; 80053; 81001; 85025

== ENCOUNTER 2020-12-30 10:30 | Outpatient (RCR) | payer MEDICARE, OTHER, SELFPAY ==
--- NOTE | 2020-11-21 17:21 | PT.OIE ---
Current Diagnoses Lateral epicondylitis, left elbow (11/21/20) Past Medical History (Last Updated 03/20/20 @ 14:44 by CASSIDY Araujo) History of partial nephrectomy History of renal cell cancer Nocturnal hypoxemia Obesity (BMI 30.0-34.9) Obstructive sleep apnea Osteoarthritis (1999) Past Surgical History (Last Reviewed 02/20/20 @ 17:52 by Vu Rowe MD) Anesthesia History of partial nephrectomy Visit Care Team Role Provider Type Liana Jenkins DO Attending Provider Physician Primary Care Provider Referring Provider Specialty: [facility] Address: [address] [place] [address], [facility] Email: [email or web address] Physical Therapy Initial Evaluation PT-OP-A Visit Information Start: 11/21/20 11:56 Freq: Status: Active Protocol: Document 11/21/20 11:15 DCW (Rec: 11/21/20 11:58 DCW [id number]) Out-Patient Physical Therapy Visit Information Visit Information Visit Type Initial Evaluation Visit Start Time 11:15 Visit Stop Time 11:55 Total Visit Minutes 40 Visit Number 1 Number of RELAY ADJUSTER Visits 0 Evaluation Information Evaluation Date 11/21/20 PT-OP-B Current Condition Start: 11/21/20 11:56 Freq: Status: Active Protocol: Document 11/21/20 11:15 DCW (Rec: 11/21/20 17:07 DC [id number]) Current Condition History of Current Condition Onset Date ~6 months Current Complaints left lateral elbow discomfort History of Current Condition Pt is a 70 year old female presenting with a six month history of left lateral elbow pain. Pt notes that the pain is constantly in her elbow, but then has occasional instances of very brief pain down into her forearm or up into her shoulder, but it only lasts a few seconds. Pt reports the pain does not really limit her from doing anything, labels it as about a 4/10, but notes she is careful carrying things, feels her left mural artist doesn't feel as strong. PT-OP-C Subjective Start: 11/21/20 11:56 Freq: Status: Active Protocol: Document 11/21/20 11:15 DCW (Rec: 11/21/20 17:07 DCW [id number]) OP-PT Subjective Patient Comments Patient Comments It's not really bad, it just isn't getting any better over six months. If anything, it might be getting worse. Patient Reported Progress Improving PT-OP-F Manual Assessment Start: 11/21/20 11:56 Freq: Status: Active Protocol: Document 11/21/20 11:15 DCW (Rec: 11/21/20 17:07 DCW [id number]) Manual Assessments Soft Tissue Assessment Soft Tissue Mobility Assessment Mild-moderate hypertonia along common extensor tendon/wrist extensors. Pt exhibits tenderness to palpation 2/4: Pain with wincing PT-OP-K Range of Motion Start: 11/21/20 11:56 Freq: Status: Active Protocol: Document 11/21/20 11:15 DCW (Rec: 11/21/20 17:07 DCW [id number]) Elbow/Forearm Range of Motion Elbow/Forearm Left Active Elbow/Forearm ROM WFL Yes ROM Testing Position Sitting Wrist Goniometric Range of Motion Wrist Left Wrist ROM WFL Yes PT-OP-L Special Tests Start: 11/21/20 11:56 Freq: Status: Active Protocol: Document 11/21/20 11:15 DCW (Rec: 11/21/20 17:07 DCW [id number]) Special Tests Elbow Special Tests Lateral Epicondylitis Extended Test Results Positive L PT-OP-M Strength Start: 11/21/20 11:56 Freq: Status: Active Protocol: Document 11/21/20 11:15 DCW (Rec: 11/21/20 17:07 DCW [id number]) Wrist Strength Wrist Manual Muscle Testing Left Flexion (C7) 4+ Good+ Extension (C6) 4+ Good+ Ulnar Deviation 4+ Good+ Radial Deviation 4+ Good+ Hand Retail Field Representative/Pinch Strength Hand Dominance Hand Dominance Right Hand Strength Right Retail Field Representative (lbs) 45 Comments 3-trial average (40 lbs, 50 lbs, 45 lbs) Left Retail Field Representative (lbs) 21.67 Comments 3-trial average (20 lbs, 20 lbs, 25 lbs) PT-OP-T Assessment and Plan Start: 11/21/20 11:56 Freq: Status: Active Protocol: Document 11/21/20 11:15 DCW (Rec: 11/21/20 17:21 DCW [id number]) Physical Therapy Assessment Rehab Potential Rehabilitation Potential Good Evaluation Complexity Number of Personal Factors/Comorbidities 0 Number of Body Systems Impaired 1-2 Clinical Presentation at Evaluation Evolving Impairments Impairments Functional Activities, Functional Mobility,Pain, Strength,Tone Goals Two Impairment Pt demonstrate left mural artist weakness, <50% of right mural artist strength Cooling Pan Tender Goal (LTG) Pt to increase left mural artist strength to within 25% (33.75 lbs) of right mural artist strength to improve ability to carry bags into house. LTG Duration 01/21/21 One Impairment Pt does not have an appropriate home exercise program Short Term Goal (STG) Pt to be independent and compliant with an appropriate HEP STG Duration 12/21/20 Assessment Summary Assessment Pt presents with signs and symptoms consistent with referring diagnosis of left lateral epicondylitis. Pt overall exhibits fairly mild symptoms, no ROM limitation or pain with stretching, just some mild-moderate tone in forearm and left mural artist limitations, as well as general pain at common extensor tendon. Pt should benefit from skilled therapy focusing on STM/Cross-friction massage, ice massage, US, iontophoresis with dexamethasone, and gentle strengthening. Physical Therapy Plan Frequency and Duration Frequency of Treatment 2x/Week Duration of Treatment Two months Plan of Care Start Date 11/21/20 Plan of Care End Date 01/21/21 Therapeutic Interventions Therapeutic Interventions Home Exercise Program,Joint Mobilizations,Manual Therapy, Patient/Caregiver Education, Self-Care/Home Management,Soft Tissue Mobilization,Taping, Therapeutic Activities, Therapeutic Exercises Modalities Cold Pack/Ice Massage,Electric Stimulation,Hot Packs, Iontophoresis,Ultrasound Other Therapeutic Interventions Iontophoresis /c Dexamethasone 4 mg/mL Next Visit Focus/Plan Next Note Type Treatment Note Next Visit Plan STM, US, Iontophoresis, gentle strengthening
--- NOTE | 2020-11-21 17:22 | PT.OPPOC ---
Physical, Occupational & Speech Therapy At [facility] Current Diagnoses Lateral epicondylitis, left elbow (11/21/20) Visit Care Team Role Provider Type Liana Jenkins DO Attending Provider Physician Primary Care Provider Referring Provider Specialty: Family Practice Address: [address] [place] [address], [facility] [place], [address] Email: [email or web address] Plan Of Care PT-OP-T Assessment and Plan Start: 11/21/20 11:56 Freq: Status: Active Protocol: Document 11/21/20 11:15 DCW (Rec: 11/21/20 17:21 DCW [id number]) Physical Therapy Assessment Rehab Potential Rehabilitation Potential Good Evaluation Complexity Number of Personal Factors/Comorbidities 0 Number of Body Systems Impaired 1-2 Clinical Presentation at Evaluation Evolving Impairments Impairments Functional Activities, Functional Mobility,Pain, Strength,Tone Goals Two Impairment Pt demonstrate left director market intelligence weakness, <50% of right director market intelligence strength Bar Host Goal (LTG) Pt to increase left director market intelligence strength to within 25% (33.75 lbs) of right director market intelligence strength to improve ability to carry bags into house. LTG Duration 01/21/21 One Impairment Pt does not have an appropriate home exercise program Short Term Goal (STG) Pt to be independent and compliant with an appropriate HEP STG Duration 12/21/20 Assessment Summary Assessment Pt presents with signs and symptoms consistent with referring diagnosis of left lateral epicondylitis. Pt overall exhibits fairly mild symptoms, no ROM limitation or pain with stretching, just some mild-moderate tone in forearm and left director market intelligence limitations, as well as general pain at common extensor tendon. Pt should benefit from skilled therapy focusing on STM/Cross-friction massage, ice massage, US, iontophoresis with dexamethasone, and gentle strengthening. Physical Therapy Plan Frequency and Duration Frequency of Treatment 2x/Week Duration of Treatment Two months Plan of Care Start Date 11/21/20 Plan of Care End Date 01/21/21 Therapeutic Interventions Therapeutic Interventions Home Exercise Program,Joint Mobilizations,Manual Therapy, Patient/Caregiver Education, Self-Care/Home Management,Soft Tissue Mobilization,Taping, Therapeutic Activities, Therapeutic Exercises Modalities Cold Pack/Ice Massage,Electric Stimulation,Hot Packs, Iontophoresis,Ultrasound Other Therapeutic Interventions Iontophoresis /c Dexamethasone 4 mg/mL Next Visit Focus/Plan Next Note Type Treatment Note Next Visit Plan STM, US, Iontophoresis, gentle strengthening Plan of Care Dates Plan of Care Start Date 11/21/20 Plan of Care End Date 01/21/21 Electronically Signed by: Romero Sandra, PT 11/21/20 0544 Please Sign and Return: I have reviewed this Plan of Care and certify that the skilled therapy services above are required to meet the patient?s needs. Physician Signature Date Printed Name and Credentials Clinical Instructor Signature Printed Name and Credentials
--- NOTE | 2020-11-21 17:23 | PT.OPPOC ---
Physical, Occupational & Speech Therapy At [facility] Current Diagnoses Lateral epicondylitis, left elbow (11/21/20) Visit Care Team Role Provider Type Liana Jenkins DO Attending Provider Physician Primary Care Provider Referring Provider Specialty: Family Practice Address: [address] [place] [address], [facility] [place], [address] Email: [email or web address] Plan Of Care PT-OP-T Assessment and Plan Start: 11/21/20 11:56 Freq: Status: Active Protocol: Document 11/21/20 11:15 DCW (Rec: 11/21/20 17:21 DCW [id number]) Physical Therapy Assessment Rehab Potential Rehabilitation Potential Good Evaluation Complexity Number of Personal Factors/Comorbidities 0 Number of Body Systems Impaired 1-2 Clinical Presentation at Evaluation Evolving Impairments Impairments Functional Activities, Functional Mobility,Pain, Strength,Tone Goals Two Impairment Pt demonstrate left can maker weakness, <50% of right can maker strength Rn Lpn Cna Goal (LTG) Pt to increase left can maker strength to within 25% (33.75 lbs) of right can maker strength to improve ability to carry bags into house. LTG Duration 01/21/21 One Impairment Pt does not have an appropriate home exercise program Short Term Goal (STG) Pt to be independent and compliant with an appropriate HEP STG Duration 12/21/20 Assessment Summary Assessment Pt presents with signs and symptoms consistent with referring diagnosis of left lateral epicondylitis. Pt overall exhibits fairly mild symptoms, no ROM limitation or pain with stretching, just some mild-moderate tone in forearm and left can maker limitations, as well as general pain at common extensor tendon. Pt should benefit from skilled therapy focusing on STM/Cross-friction massage, ice massage, US, iontophoresis with dexamethasone, and gentle strengthening. Physical Therapy Plan Frequency and Duration Frequency of Treatment 2x/Week Duration of Treatment Two months Plan of Care Start Date 11/21/20 Plan of Care End Date 01/21/21 Therapeutic Interventions Therapeutic Interventions Home Exercise Program,Joint Mobilizations,Manual Therapy, Patient/Caregiver Education, Self-Care/Home Management,Soft Tissue Mobilization,Taping, Therapeutic Activities, Therapeutic Exercises Modalities Cold Pack/Ice Massage,Electric Stimulation,Hot Packs, Iontophoresis,Ultrasound Other Therapeutic Interventions Iontophoresis /c Dexamethasone 4 mg/mL Next Visit Focus/Plan Next Note Type Treatment Note Next Visit Plan STM, US, Iontophoresis, gentle strengthening Plan of Care Dates Plan of Care Start Date 11/21/20 Plan of Care End Date 01/21/21 Electronically Signed by: Romero Sandra, PT 11/21/20 7417 Please Sign and Return: I have reviewed this Plan of Care and certify that the skilled therapy services above are required to meet the patient?s needs. Physician Signature Date Printed Name and Credentials Clinical Instructor Signature Printed Name and Credentials
--- NOTE | 2020-11-25 12:18 | PT.OTN ---
Current Diagnoses Lateral epicondylitis, left elbow (11/25/20) Physical Therapy Treatment Note PT-OP-A Visit Information Start: 11/21/20 11:56 Freq: Status: Active Protocol: Document 11/25/20 10:30 DCW (Rec: 11/25/20 12:18 DCW [id number]) Out-Patient Physical Therapy Visit Information Visit Information Visit Type Treatment Note Visit Start Time 10:30 Visit Stop Time 11:10 Total Visit Minutes 40 Visit Number 2 Number of COUNSELING CENTER MANAGER Visits 0 Evaluation Information Evaluation Date 11/21/20 PT-OP-B Current Condition Start: 11/21/20 11:56 Freq: Status: Active Protocol: Document 11/21/20 11:15 DCW (Rec: 11/21/20 17:07 DCW [id number]) Current Condition History of Current Condition Onset Date ~6 months Current Complaints left lateral elbow discomfort History of Current Condition Pt is a 70 year old female presenting with a six month history of left lateral elbow pain. Pt notes that the pain is constantly in her elbow, but then has occasional instances of very brief pain down into her forearm or up into her shoulder, but it only lasts a few seconds. Pt reports the pain does not really limit her from doing anything, labels it as about a 4/10, but notes she is careful carrying things, feels her left batch tank controller doesn't feel as strong. PT-OP-C Subjective Start: 11/21/20 11:56 Freq: Status: Active Protocol: Document 11/25/20 10:30 DCW (Rec: 11/25/20 12:18 DCW [id number]) OP-PT Subjective Patient Comments Patient Comments Pt admits she fell outside this weekend onto her sore arm , but did not seem to have any lasting effects. Notes she was able to ice it right away, feels that probably helped. PT-OP-F Manual Assessment Start: 11/21/20 11:56 Freq: Status: Active Protocol: Document 11/21/20 11:15 DCW (Rec: 11/21/20 17:07 DCW [id number]) Manual Assessments Soft Tissue Assessment Soft Tissue Mobility Assessment Mild-moderate hypertonia along common extensor tendon/wrist extensors. Pt exhibits tenderness to palpation 2/4: Pain with wincing PT-OP-K Range of Motion Start: 11/21/20 11:56 Freq: Status: Active Protocol: Document 11/21/20 11:15 DCW (Rec: 11/21/20 17:07 DCW [id number]) Elbow/Forearm Range of Motion Elbow/Forearm Left Active Elbow/Forearm ROM WFL Yes ROM Testing Position Sitting Wrist Goniometric Range of Motion Wrist Left Wrist ROM WFL Yes PT-OP-L Special Tests Start: 11/21/20 11:56 Freq: Status: Active Protocol: Document 11/21/20 11:15 DCW (Rec: 11/21/20 17:07 DCW [id number]) Special Tests Elbow Special Tests Lateral Epicondylitis Extended Test Results Positive L PT-OP-M Strength Start: 11/21/20 11:56 Freq: Status: Active Protocol: Document 11/21/20 11:15 DCW (Rec: 11/21/20 17:07 DCW [id number]) Wrist Strength Wrist Manual Muscle Testing Left Flexion (C7) 4+ Good+ Extension (C6) 4+ Good+ Ulnar Deviation 4+ Good+ Radial Deviation 4+ Good+ Hand Snailer/Pinch Strength Hand Dominance Hand Dominance Right Hand Strength Right Snailer (lbs) 45 Comments 3-trial average (40 lbs, 50 lbs, 45 lbs) Left Snailer (lbs) 21.67 Comments 3-trial average (20 lbs, 20 lbs, 25 lbs) PT-OP-Q Treatments Start: 11/21/20 11:56 Freq: Status: Active Protocol: Document 11/25/20 10:30 DCW (Rec: 11/25/20 12:18 DCW [id number]) Therapeutic Exercises Sitting Exercises 1 Sitting Exercise Name Wrist flexion/extension stretching Side left Manual Therapy Treatment Soft Tissue Mobilization 1 Body Location Left common extensor tendon, forearm Mobilization Type Cross-Friction,Strumming Intensity/Depth Moderate Body Position Sitting PT-OP-R Modalities Start: 11/21/20 11:56 Freq: Status: Active Protocol: Document 11/25/20 10:30 DCW (Rec: 11/25/20 12:18 DCW [id number]) Iontophoresis Treatment Left Lateral Elbow Treatment Medication Dexamethasone (-) Medication Amount (mL) (ml) 1.0 Medication Dosage 4 mg/mL Treatment Polarity Negative to Negative Active Electrode Placement L Lateral epicondyle Treatment Duration (minutes) 5 Ultrasound Therapy Treatment Left Lateral Elbow Treatment Duration (minutes) 8 Patient Position Sitting Coupling Medium Ultrasound Gel Applicator Size (cm2) 2 Frequency Setting (mHz) 3 Mode Setting Pulsed Duty Cycle 50% Intensity Setting (w/cm2) 1.0 PT-OP-T Assessment and Plan Start: 11/21/20 11:56 Freq: Status: Active Protocol: Document 11/25/20 10:30 DCW (Rec: 11/25/20 12:18 DCW [id number]) Physical Therapy Assessment Impairments Impairments Functional Activities, Functional Mobility,Pain, Strength,Tone Goals Two Impairment Pt demonstrate left batch tank controller weakness, <50% of right batch tank controller strength Computer Service Technician Goal (LTG) Pt to increase left batch tank controller strength to within 25% (33.75 lbs) of right batch tank controller strength to improve ability to carry bags into house. LTG Duration 01/21/21 One Impairment Pt does not have an appropriate home exercise program Short Term Goal (STG) Pt to be independent and compliant with an appropriate HEP STG Duration 12/21/20 Assessment Summary Assessment Pt tolerated treatment fairly well, did have some increased tenderness with STM/Cross- friction massage. Pt doing well with rest and ice at home . Physical Therapy Plan Frequency and Duration Frequency of Treatment 2x/Week Duration of Treatment Two months Plan of Care Start Date 11/21/20 Plan of Care End Date 01/21/21 Therapeutic Interventions Therapeutic Interventions Home Exercise Program,Joint Mobilizations,Manual Therapy, Patient/Caregiver Education, Self-Care/Home Management,Soft Tissue Mobilization,Taping, Therapeutic Activities, Therapeutic Exercises Modalities Cold Pack/Ice Massage,Electric Stimulation,Hot Packs, Iontophoresis,Ultrasound Other Therapeutic Interventions Iontophoresis /c Dexamethasone 4 mg/mL Next Visit Focus/Plan Next Note Type Treatment Note Next Visit Plan STM, US, Iontophoresis, gentle strengthening
--- NOTE | 2020-11-28 10:29 | PT.OTN ---
Current Diagnoses Lateral epicondylitis, left elbow (11/28/20) Physical Therapy Treatment Note PT-OP-A Visit Information Start: 11/21/20 11:56 Freq: Status: Active Protocol: Document 11/28/20 09:45 DCW (Rec: 11/28/20 10:29 DCW [id number]) Out-Patient Physical Therapy Visit Information Visit Information Visit Type Treatment Note Visit Start Time 09:45 Visit Stop Time 10:30 Total Visit Minutes 45 Visit Number 3 Number of MAIL AGENT Visits 0 Evaluation Information Evaluation Date 11/21/20 PT-OP-B Current Condition Start: 11/21/20 11:56 Freq: Status: Active Protocol: Document 11/21/20 11:15 DCW (Rec: 11/21/20 17:07 DCW [id number]) Current Condition History of Current Condition Onset Date ~6 months Current Complaints left lateral elbow discomfort History of Current Condition Pt is a 70 year old female presenting with a six month history of left lateral elbow pain. Pt notes that the pain is constantly in her elbow, but then has occasional instances of very brief pain down into her forearm or up into her shoulder, but it only lasts a few seconds. Pt reports the pain does not really limit her from doing anything, labels it as about a 4/10, but notes she is careful carrying things, feels her left development editor doesn't feel as strong. PT-OP-C Subjective Start: 11/21/20 11:56 Freq: Status: Active Protocol: Document 11/28/20 09:45 DCW (Rec: 11/28/20 10:29 DCW [id number]) OP-PT Subjective Patient Comments Patient Comments Pt having some dental issues today, but her arm is doing fairly well. PT-OP-F Manual Assessment Start: 11/21/20 11:56 Freq: Status: Active Protocol: Document 11/21/20 11:15 DCW (Rec: 11/21/20 17:07 DCW [id number]) Manual Assessments Soft Tissue Assessment Soft Tissue Mobility Assessment Mild-moderate hypertonia along common extensor tendon/wrist extensors. Pt exhibits tenderness to palpation 2/4: Pain with wincing PT-OP-K Range of Motion Start: 11/21/20 11:56 Freq: Status: Active Protocol: Document 11/21/20 11:15 DCW (Rec: 11/21/20 17:07 DCW [id number]) Elbow/Forearm Range of Motion Elbow/Forearm Left Active Elbow/Forearm ROM WFL Yes ROM Testing Position Sitting Wrist Goniometric Range of Motion Wrist Left Wrist ROM WFL Yes PT-OP-L Special Tests Start: 11/21/20 11:56 Freq: Status: Active Protocol: Document 11/21/20 11:15 DCW (Rec: 11/21/20 17:07 DCW [id number]) Special Tests Elbow Special Tests Lateral Epicondylitis Extended Test Results Positive L PT-OP-M Strength Start: 11/21/20 11:56 Freq: Status: Active Protocol: Document 11/21/20 11:15 DCW (Rec: 11/21/20 17:07 DCW [id number]) Wrist Strength Wrist Manual Muscle Testing Left Flexion (C7) 4+ Good+ Extension (C6) 4+ Good+ Ulnar Deviation 4+ Good+ Radial Deviation 4+ Good+ Hand Accounts Collector/Pinch Strength Hand Dominance Hand Dominance Right Hand Strength Right Accounts Collector (lbs) 45 Comments 3-trial average (40 lbs, 50 lbs, 45 lbs) Left Accounts Collector (lbs) 21.67 Comments 3-trial average (20 lbs, 20 lbs, 25 lbs) PT-OP-Q Treatments Start: 11/21/20 11:56 Freq: Status: Active Protocol: Document 11/28/20 09:45 DCW (Rec: 11/28/20 10:29 DCW [id number]) Therapeutic Exercises Sitting Exercises 1 Sitting Exercise Name Wrist flexion/extension stretching Side left Manual Therapy Treatment Soft Tissue Mobilization 1 Body Location Left common extensor tendon, forearm Mobilization Type Cross-Friction,Strumming Intensity/Depth Moderate Body Position Sitting PT-OP-R Modalities Start: 11/21/20 11:56 Freq: Status: Active Protocol: Document 11/28/20 09:45 DCW (Rec: 11/28/20 10:29 DCW [id number]) Iontophoresis Treatment Left Lateral Elbow Treatment Medication Dexamethasone (-) Medication Amount (mL) (ml) 1.0 Medication Dosage 4 mg/mL Treatment Polarity Negative to Negative Active Electrode Placement L Lateral epicondyle Treatment Duration (minutes) 5 Ultrasound Therapy Treatment Left Lateral Elbow Treatment Duration (minutes) 8 Patient Position Sitting Coupling Medium Ultrasound Gel Applicator Size (cm2) 2 Frequency Setting (mHz) 3 Mode Setting Pulsed Duty Cycle 50% Intensity Setting (w/cm2) 1.0 PT-OP-T Assessment and Plan Start: 11/21/20 11:56 Freq: Status: Active Protocol: Document 11/28/20 09:45 DCW (Rec: 11/28/20 10:29 DCW [id number]) Physical Therapy Assessment Impairments Impairments Functional Activities, Functional Mobility,Pain, Strength,Tone Goals Two Impairment Pt demonstrate left development editor weakness, <50% of right development editor strength Retirement Goal (LTG) Pt to increase left development editor strength to within 25% (33.75 lbs) of right development editor strength to improve ability to carry bags into house. LTG Duration 01/21/21 One Impairment Pt does not have an appropriate home exercise program Short Term Goal (STG) Pt to be independent and compliant with an appropriate HEP STG Duration 12/21/20 Assessment Summary Assessment Forearm has less palpable tone along wrist extensor today. Pt did not feet much change wuth use of Ionto, but is agreeable to continue using it . Physical Therapy Plan Frequency and Duration Frequency of Treatment 2x/Week Duration of Treatment Two months Plan of Care Start Date 11/21/20 Plan of Care End Date 01/21/21 Therapeutic Interventions Therapeutic Interventions Home Exercise Program,Joint Mobilizations,Manual Therapy, Patient/Caregiver Education, Self-Care/Home Management,Soft Tissue Mobilization,Taping, Therapeutic Activities, Therapeutic Exercises Modalities Cold Pack/Ice Massage,Electric Stimulation,Hot Packs, Iontophoresis,Ultrasound Other Therapeutic Interventions Iontophoresis /c Dexamethasone 4 mg/mL Next Visit Focus/Plan Next Note Type Treatment Note Next Visit Plan STM, US, Iontophoresis, gentle strengthening
--- NOTE | 2020-12-02 14:27 | PT.OTN ---
Current Diagnoses Lateral epicondylitis, left elbow (12/02/20) Physical Therapy Treatment Note PT-OP-A Visit Information Start: 11/21/20 11:56 Freq: Status: Active Protocol: Document 12/02/20 13:45 DCW (Rec: 12/02/20 14:27 DCW [id number]) Out-Patient Physical Therapy Visit Information Visit Information Visit Type Treatment Note Visit Start Time 13:45 Visit Stop Time 14:30 Total Visit Minutes 45 Visit Number 4 Number of SALES AGENT BUSINESS SERVICES Visits 0 Evaluation Information Evaluation Date 11/21/20 PT-OP-B Current Condition Start: 11/21/20 11:56 Freq: Status: Active Protocol: Document 11/21/20 11:15 DCW (Rec: 11/21/20 17:07 DCW [id number]) Current Condition History of Current Condition Onset Date ~6 months Current Complaints left lateral elbow discomfort History of Current Condition Pt is a 70 year old female presenting with a six month history of left lateral elbow pain. Pt notes that the pain is constantly in her elbow, but then has occasional instances of very brief pain down into her forearm or up into her shoulder, but it only lasts a few seconds. Pt reports the pain does not really limit her from doing anything, labels it as about a 4/10, but notes she is careful carrying things, feels her left elevator technician doesn't feel as strong. PT-OP-C Subjective Start: 11/21/20 11:56 Freq: Status: Active Protocol: Document 12/02/20 13:45 DCW (Rec: 12/02/20 14:27 DCW [id number]) OP-PT Subjective Patient Comments Patient Comments I got on my treadmill this morning, so I got some moving in, and I'm feeling pretty good. PT-OP-F Manual Assessment Start: 11/21/20 11:56 Freq: Status: Active Protocol: Document 11/21/20 11:15 DCW (Rec: 11/21/20 17:07 DCW [id number]) Manual Assessments Soft Tissue Assessment Soft Tissue Mobility Assessment Mild-moderate hypertonia along common extensor tendon/wrist extensors. Pt exhibits tenderness to palpation 2/4: Pain with wincing PT-OP-K Range of Motion Start: 11/21/20 11:56 Freq: Status: Active Protocol: Document 11/21/20 11:15 DCW (Rec: 11/21/20 17:07 DCW [id number]) Elbow/Forearm Range of Motion Elbow/Forearm Left Active Elbow/Forearm ROM WFL Yes ROM Testing Position Sitting Wrist Goniometric Range of Motion Wrist Left Wrist ROM WFL Yes PT-OP-L Special Tests Start: 11/21/20 11:56 Freq: Status: Active Protocol: Document 11/21/20 11:15 DCW (Rec: 11/21/20 17:07 DCW [id number]) Special Tests Elbow Special Tests Lateral Epicondylitis Extended Test Results Positive L PT-OP-M Strength Start: 11/21/20 11:56 Freq: Status: Active Protocol: Document 11/21/20 11:15 DCW (Rec: 11/21/20 17:07 DCW [id number]) Wrist Strength Wrist Manual Muscle Testing Left Flexion (C7) 4+ Good+ Extension (C6) 4+ Good+ Ulnar Deviation 4+ Good+ Radial Deviation 4+ Good+ Hand Shaker Plate Operator/Pinch Strength Hand Dominance Hand Dominance Right Hand Strength Right Shaker Plate Operator (lbs) 45 Comments 3-trial average (40 lbs, 50 lbs, 45 lbs) Left Shaker Plate Operator (lbs) 21.67 Comments 3-trial average (20 lbs, 20 lbs, 25 lbs) PT-OP-Q Treatments Start: 11/21/20 11:56 Freq: Status: Active Protocol: Document 12/02/20 13:45 DCW (Rec: 12/02/20 14:27 DCW [id number]) Therapeutic Exercises Sitting Exercises 1 Sitting Exercise Name Wrist flexion/extension stretching Side left Manual Therapy Treatment Soft Tissue Mobilization 1 Body Location Left common extensor tendon, forearm Mobilization Type Cross-Friction,Strumming Intensity/Depth Moderate Body Position Sitting PT-OP-R Modalities Start: 11/21/20 11:56 Freq: Status: Active Protocol: Document 12/02/20 13:45 DCW (Rec: 12/02/20 14:27 DCW [id number]) Iontophoresis Treatment Left Lateral Elbow Treatment Medication Dexamethasone (-) Medication Amount (mL) (ml) 1.0 Medication Dosage 4 mg/mL Treatment Polarity Negative to Negative Active Electrode Placement L Lateral epicondyle Treatment Duration (minutes) 5 Ultrasound Therapy Treatment Left Lateral Elbow Treatment Duration (minutes) 8 Patient Position Sitting Coupling Medium Ultrasound Gel Applicator Size (cm2) 2 Frequency Setting (mHz) 3 Mode Setting Pulsed Duty Cycle 50% Intensity Setting (w/cm2) 1.0 PT-OP-T Assessment and Plan Start: 11/21/20 11:56 Freq: Status: Active Protocol: Document 12/02/20 13:45 DCW (Rec: 12/02/20 14:27 DCW [id number]) Physical Therapy Assessment Impairments Impairments Functional Activities, Functional Mobility,Pain, Strength,Tone Goals Two Impairment Pt demonstrate left elevator technician weakness, <50% of right elevator technician strength Dip Stand Loader Goal (LTG) Pt to increase left elevator technician strength to within 25% (33.75 lbs) of right elevator technician strength to improve ability to carry bags into house. LTG Duration 01/21/21 One Impairment Pt does not have an appropriate home exercise program Short Term Goal (STG) Pt to be independent and compliant with an appropriate HEP STG Duration 12/21/20 Assessment Summary Assessment Pt noting improved pain levels during treatment today, much less tenderness overall. Physical Therapy Plan Frequency and Duration Frequency of Treatment 2x/Week Duration of Treatment Two months Plan of Care Start Date 11/21/20 Plan of Care End Date 01/21/21 Therapeutic Interventions Therapeutic Interventions Home Exercise Program,Joint Mobilizations,Manual Therapy, Patient/Caregiver Education, Self-Care/Home Management,Soft Tissue Mobilization,Taping, Therapeutic Activities, Therapeutic Exercises Modalities Cold Pack/Ice Massage,Electric Stimulation,Hot Packs, Iontophoresis,Ultrasound Other Therapeutic Interventions Iontophoresis /c Dexamethasone 4 mg/mL Next Visit Focus/Plan Next Note Type Treatment Note Next Visit Plan STM, US, Iontophoresis, gentle strengthening
--- NOTE | 2020-12-05 12:50 | PT.OTN ---
Current Diagnoses Lateral epicondylitis, left elbow (12/05/20) Physical Therapy Treatment Note PT-OP-A Visit Information Start: 11/21/20 11:56 Freq: Status: Active Protocol: Document 12/05/20 12:00 DCW (Rec: 12/05/20 12:50 DCW [id number]) Out-Patient Physical Therapy Visit Information Visit Information Visit Type Treatment Note Visit Start Time 12:00 Visit Stop Time 12:45 Total Visit Minutes 45 Visit Number 5 Number of STAFF AIR TACTICAL OFFICER Visits 0 Evaluation Information Evaluation Date 11/21/20 PT-OP-B Current Condition Start: 11/21/20 11:56 Freq: Status: Active Protocol: Document 11/21/20 11:15 DCW (Rec: 11/21/20 17:07 DCW [id number]) Current Condition History of Current Condition Onset Date ~6 months Current Complaints left lateral elbow discomfort History of Current Condition Pt is a 70 year old female presenting with a six month history of left lateral elbow pain. Pt notes that the pain is constantly in her elbow, but then has occasional instances of very brief pain down into her forearm or up into her shoulder, but it only lasts a few seconds. Pt reports the pain does not really limit her from doing anything, labels it as about a 4/10, but notes she is careful carrying things, feels her left renewable energy division manager doesn't feel as strong. PT-OP-C Subjective Start: 11/21/20 11:56 Freq: Status: Active Protocol: Document 12/05/20 12:00 DCW (Rec: 12/05/20 12:50 DCW [id number]) OP-PT Subjective Patient Comments Patient Comments Pt feeling better today than I was the past few days, reports she had a rough few days getting her crown fixed. PT-OP-F Manual Assessment Start: 11/21/20 11:56 Freq: Status: Active Protocol: Document 11/21/20 11:15 DCW (Rec: 11/21/20 17:07 DCW [id number]) Manual Assessments Soft Tissue Assessment Soft Tissue Mobility Assessment Mild-moderate hypertonia along common extensor tendon/wrist extensors. Pt exhibits tenderness to palpation 2/4: Pain with wincing PT-OP-K Range of Motion Start: 11/21/20 11:56 Freq: Status: Active Protocol: Document 11/21/20 11:15 DCW (Rec: 11/21/20 17:07 DCW [id number]) Elbow/Forearm Range of Motion Elbow/Forearm Left Active Elbow/Forearm ROM WFL Yes ROM Testing Position Sitting Wrist Goniometric Range of Motion Wrist Left Wrist ROM WFL Yes PT-OP-L Special Tests Start: 11/21/20 11:56 Freq: Status: Active Protocol: Document 11/21/20 11:15 DCW (Rec: 11/21/20 17:07 DCW [id number]) Special Tests Elbow Special Tests Lateral Epicondylitis Extended Test Results Positive L PT-OP-M Strength Start: 11/21/20 11:56 Freq: Status: Active Protocol: Document 11/21/20 11:15 DCW (Rec: 11/21/20 17:07 DCW [id number]) Wrist Strength Wrist Manual Muscle Testing Left Flexion (C7) 4+ Good+ Extension (C6) 4+ Good+ Ulnar Deviation 4+ Good+ Radial Deviation 4+ Good+ Hand Load Dispatcher Local/Pinch Strength Hand Dominance Hand Dominance Right Hand Strength Right Load Dispatcher Local (lbs) 45 Comments 3-trial average (40 lbs, 50 lbs, 45 lbs) Left Load Dispatcher Local (lbs) 21.67 Comments 3-trial average (20 lbs, 20 lbs, 25 lbs) PT-OP-Q Treatments Start: 11/21/20 11:56 Freq: Status: Active Protocol: Document 12/05/20 12:00 DCW (Rec: 12/05/20 12:50 DCW [id number]) Therapeutic Exercises Sitting Exercises 1 Sitting Exercise Name Wrist flexion/extension stretching Side left Manual Therapy Treatment Soft Tissue Mobilization 1 Body Location Left common extensor tendon, forearm Mobilization Type Cross-Friction,Strumming Intensity/Depth Moderate Body Position Sitting PT-OP-R Modalities Start: 11/21/20 11:56 Freq: Status: Active Protocol: Document 12/05/20 12:00 DCW (Rec: 12/05/20 12:50 DCW [id number]) Iontophoresis Treatment Left Lateral Elbow Treatment Medication Dexamethasone (-) Medication Amount (mL) (ml) 1.0 Medication Dosage 4 mg/mL Treatment Polarity Negative to Negative Active Electrode Placement L Lateral epicondyle Treatment Duration (minutes) 5 Ultrasound Therapy Treatment Left Lateral Elbow Treatment Duration (minutes) 8 Patient Position Sitting Coupling Medium Ultrasound Gel Applicator Size (cm2) 2 Frequency Setting (mHz) 3 Mode Setting Pulsed Duty Cycle 50% Intensity Setting (w/cm2) 1.0 PT-OP-T Assessment and Plan Start: 11/21/20 11:56 Freq: Status: Active Protocol: Document 12/05/20 12:00 DCW (Rec: 12/05/20 12:50 DCW [id number]) Physical Therapy Assessment Impairments Impairments Functional Activities, Functional Mobility,Pain, Strength,Tone Goals Two Impairment Pt demonstrate left renewable energy division manager weakness, <50% of right renewable energy division manager strength Human Resources Generalist Goal (LTG) Pt to increase left renewable energy division manager strength to within 25% (33.75 lbs) of right renewable energy division manager strength to improve ability to carry bags into house. LTG Duration 01/21/21 One Impairment Pt does not have an appropriate home exercise program Short Term Goal (STG) Pt to be independent and compliant with an appropriate HEP STG Duration 12/21/20 Assessment Summary Assessment Pt unsure if she is making progress, although tenderness to palpation has decreased significantly. Physical Therapy Plan Frequency and Duration Frequency of Treatment 2x/Week Duration of Treatment Two months Plan of Care Start Date 11/21/20 Plan of Care End Date 01/21/21 Therapeutic Interventions Therapeutic Interventions Home Exercise Program,Joint Mobilizations,Manual Therapy, Patient/Caregiver Education, Self-Care/Home Management,Soft Tissue Mobilization,Taping, Therapeutic Activities, Therapeutic Exercises Modalities Cold Pack/Ice Massage,Electric Stimulation,Hot Packs, Iontophoresis,Ultrasound Other Therapeutic Interventions Iontophoresis /c Dexamethasone 4 mg/mL Next Visit Focus/Plan Next Note Type Treatment Note Next Visit Plan STM, US, Iontophoresis, gentle strengthening
--- NOTE | 2020-12-25 12:48 | PT.OTN ---
Current Diagnoses Lateral epicondylitis, left elbow (12/25/20) Physical Therapy Treatment Note PT-OP-A Visit Information Start: 11/21/20 11:56 Freq: Status: Active Protocol: Document 12/25/20 12:00 DCW (Rec: 12/25/20 12:48 DCW [id number]) Out-Patient Physical Therapy Visit Information Visit Information Visit Type Treatment Note Visit Start Time 12:00 Visit Stop Time 12:45 Total Visit Minutes 45 Visit Number 6 Number of NATURAL FABRICATOR Visits 0 Evaluation Information Evaluation Date 11/21/20 PT-OP-B Current Condition Start: 11/21/20 11:56 Freq: Status: Active Protocol: Document 11/21/20 11:15 DCW (Rec: 11/21/20 17:07 DCW [id number]) Current Condition History of Current Condition Onset Date ~6 months Current Complaints left lateral elbow discomfort History of Current Condition Pt is a 70 year old female presenting with a six month history of left lateral elbow pain. Pt notes that the pain is constantly in her elbow, but then has occasional instances of very brief pain down into her forearm or up into her shoulder, but it only lasts a few seconds. Pt reports the pain does not really limit her from doing anything, labels it as about a 4/10, but notes she is careful carrying things, feels her left dental billing specialist doesn't feel as strong. PT-OP-C Subjective Start: 11/21/20 11:56 Freq: Status: Active Protocol: Document 12/25/20 12:00 DCW (Rec: 12/25/20 12:48 DCW [id number]) OP-PT Subjective Patient Comments Patient Comments Pt notes her elbow feels worse now after her trip to [facility], admits to doing a lot of repetitive activity. PT-OP-F Manual Assessment Start: 11/21/20 11:56 Freq: Status: Active Protocol: Document 11/21/20 11:15 DCW (Rec: 11/21/20 17:07 DCW [id number]) Manual Assessments Soft Tissue Assessment Soft Tissue Mobility Assessment Mild-moderate hypertonia along common extensor tendon/wrist extensors. Pt exhibits tenderness to palpation 2/4: Pain with wincing PT-OP-K Range of Motion Start: 11/21/20 11:56 Freq: Status: Active Protocol: Document 11/21/20 11:15 DCW (Rec: 11/21/20 17:07 DCW [id number]) Elbow/Forearm Range of Motion Elbow/Forearm Left Active Elbow/Forearm ROM WFL Yes ROM Testing Position Sitting Wrist Goniometric Range of Motion Wrist Left Wrist ROM WFL Yes PT-OP-L Special Tests Start: 11/21/20 11:56 Freq: Status: Active Protocol: Document 11/21/20 11:15 DCW (Rec: 11/21/20 17:07 DCW [id number]) Special Tests Elbow Special Tests Lateral Epicondylitis Extended Test Results Positive L PT-OP-M Strength Start: 11/21/20 11:56 Freq: Status: Active Protocol: Document 11/21/20 11:15 DCW (Rec: 11/21/20 17:07 DCW [id number]) Wrist Strength Wrist Manual Muscle Testing Left Flexion (C7) 4+ Good+ Extension (C6) 4+ Good+ Ulnar Deviation 4+ Good+ Radial Deviation 4+ Good+ Hand Project Coordinator Rn/Pinch Strength Hand Dominance Hand Dominance Right Hand Strength Right Project Coordinator Rn (lbs) 45 Comments 3-trial average (40 lbs, 50 lbs, 45 lbs) Left Project Coordinator Rn (lbs) 21.67 Comments 3-trial average (20 lbs, 20 lbs, 25 lbs) PT-OP-Q Treatments Start: 11/21/20 11:56 Freq: Status: Active Protocol: Document 12/25/20 12:00 DCW (Rec: 12/25/20 12:48 DCW [id number]) Therapeutic Exercises Sitting Exercises 1 Sitting Exercise Name Wrist flexion/extension stretching Side left Manual Therapy Treatment Soft Tissue Mobilization 1 Body Location Left common extensor tendon, forearm Mobilization Type Cross-Friction,Strumming Intensity/Depth Moderate Body Position Sitting PT-OP-R Modalities Start: 11/21/20 11:56 Freq: Status: Active Protocol: Document 12/25/20 12:00 DCW (Rec: 12/25/20 12:48 DCW [id number]) Iontophoresis Treatment Left Lateral Elbow Treatment Medication Dexamethasone (-) Medication Amount (mL) (ml) 1.0 Medication Dosage 4 mg/mL Treatment Polarity Negative to Negative Active Electrode Placement L Lateral epicondyle Treatment Duration (minutes) 5 Ultrasound Therapy Treatment Left Lateral Elbow Treatment Duration (minutes) 8 Patient Position Sitting Coupling Medium Ultrasound Gel Applicator Size (cm2) 2 Frequency Setting (mHz) 3 Mode Setting Pulsed Duty Cycle 50% Intensity Setting (w/cm2) 1.0 PT-OP-T Assessment and Plan Start: 11/21/20 11:56 Freq: Status: Active Protocol: Document 12/25/20 12:00 DCW (Rec: 12/25/20 12:48 DCW [id number]) Physical Therapy Assessment Impairments Impairments Functional Activities, Functional Mobility,Pain, Strength,Tone Goals Two Impairment Pt demonstrate left dental billing specialist weakness, <50% of right dental billing specialist strength Fdc Goal (LTG) Pt to increase left dental billing specialist strength to within 25% (33.75 lbs) of right dental billing specialist strength to improve ability to carry bags into house. LTG Duration 01/21/21 One Impairment Pt does not have an appropriate home exercise program Short Term Goal (STG) Pt to be independent and compliant with an appropriate HEP STG Duration 12/21/20 Assessment Summary Assessment Pt now feels like she was making progress before her trip, but now has declined back to where she was. Physical Therapy Plan Frequency and Duration Frequency of Treatment 2x/Week Duration of Treatment Two months Plan of Care Start Date 11/21/20 Plan of Care End Date 01/21/21 Therapeutic Interventions Therapeutic Interventions Home Exercise Program,Joint Mobilizations,Manual Therapy, Patient/Caregiver Education, Self-Care/Home Management,Soft Tissue Mobilization,Taping, Therapeutic Activities, Therapeutic Exercises Modalities Cold Pack/Ice Massage,Electric Stimulation,Hot Packs, Iontophoresis,Ultrasound Other Therapeutic Interventions Iontophoresis /c Dexamethasone 4 mg/mL Next Visit Focus/Plan Next Note Type Treatment Note Next Visit Plan STM, US, Iontophoresis, gentle strengthening
--- NOTE | 2020-12-27 12:44 | PT.OTN ---
Current Diagnoses Lateral epicondylitis, left elbow (12/27/20) Physical Therapy Treatment Note PT-OP-A Visit Information Start: 11/21/20 11:56 Freq: Status: Active Protocol: Document 12/27/20 12:00 DCW (Rec: 12/27/20 12:44 DCW [id number]) Out-Patient Physical Therapy Visit Information Visit Information Visit Type Treatment Note Visit Start Time 12:00 Visit Stop Time 12:45 Total Visit Minutes 45 Visit Number 7 Number of CARBON BLOCKS PRESS OPERATOR Visits 0 Evaluation Information Evaluation Date 11/21/20 PT-OP-B Current Condition Start: 11/21/20 11:56 Freq: Status: Active Protocol: Document 11/21/20 11:15 DCW (Rec: 11/21/20 17:07 DCW [id number]) Current Condition History of Current Condition Onset Date ~6 months Current Complaints left lateral elbow discomfort History of Current Condition Pt is a 70 year old female presenting with a six month history of left lateral elbow pain. Pt notes that the pain is constantly in her elbow, but then has occasional instances of very brief pain down into her forearm or up into her shoulder, but it only lasts a few seconds. Pt reports the pain does not really limit her from doing anything, labels it as about a 4/10, but notes she is careful carrying things, feels her left checkering machine adjuster doesn't feel as strong. PT-OP-C Subjective Start: 11/21/20 11:56 Freq: Status: Active Protocol: Document 12/27/20 12:00 DCW (Rec: 12/27/20 12:44 DCW [id number]) OP-PT Subjective Patient Comments Patient Comments I'm just kind of achy all over, but that's just the way it's going to be between stress and not drinking enough water and being old. PT-OP-F Manual Assessment Start: 11/21/20 11:56 Freq: Status: Active Protocol: Document 11/21/20 11:15 DCW (Rec: 11/21/20 17:07 DCW [id number]) Manual Assessments Soft Tissue Assessment Soft Tissue Mobility Assessment Mild-moderate hypertonia along common extensor tendon/wrist extensors. Pt exhibits tenderness to palpation 2/4: Pain with wincing PT-OP-K Range of Motion Start: 11/21/20 11:56 Freq: Status: Active Protocol: Document 11/21/20 11:15 DCW (Rec: 11/21/20 17:07 DCW [id number]) Elbow/Forearm Range of Motion Elbow/Forearm Left Active Elbow/Forearm ROM WFL Yes ROM Testing Position Sitting Wrist Goniometric Range of Motion Wrist Left Wrist ROM WFL Yes PT-OP-L Special Tests Start: 11/21/20 11:56 Freq: Status: Active Protocol: Document 11/21/20 11:15 DCW (Rec: 11/21/20 17:07 DCW [id number]) Special Tests Elbow Special Tests Lateral Epicondylitis Extended Test Results Positive L PT-OP-M Strength Start: 11/21/20 11:56 Freq: Status: Active Protocol: Document 11/21/20 11:15 DCW (Rec: 11/21/20 17:07 DCW [id number]) Wrist Strength Wrist Manual Muscle Testing Left Flexion (C7) 4+ Good+ Extension (C6) 4+ Good+ Ulnar Deviation 4+ Good+ Radial Deviation 4+ Good+ Hand Neonatal Nurse Practitioner/Pinch Strength Hand Dominance Hand Dominance Right Hand Strength Right Neonatal Nurse Practitioner (lbs) 45 Comments 3-trial average (40 lbs, 50 lbs, 45 lbs) Left Neonatal Nurse Practitioner (lbs) 21.67 Comments 3-trial average (20 lbs, 20 lbs, 25 lbs) PT-OP-Q Treatments Start: 11/21/20 11:56 Freq: Status: Active Protocol: Document 12/27/20 12:00 DCW (Rec: 12/27/20 12:44 DCW [id number]) Therapeutic Exercises Sitting Exercises 1 Sitting Exercise Name Wrist flexion/extension stretching Side left Manual Therapy Treatment Soft Tissue Mobilization 1 Body Location Left common extensor tendon, forearm Mobilization Type Cross-Friction,Strumming Intensity/Depth Moderate Body Position Sitting PT-OP-R Modalities Start: 11/21/20 11:56 Freq: Status: Active Protocol: Document 12/27/20 12:00 DCW (Rec: 12/27/20 12:44 DCW [id number]) Iontophoresis Treatment Left Lateral Elbow Treatment Medication Dexamethasone (-) Medication Amount (mL) (ml) 1.0 Medication Dosage 4 mg/mL Treatment Polarity Negative to Negative Active Electrode Placement L Lateral epicondyle Treatment Duration (minutes) 5 Ultrasound Therapy Treatment Left Lateral Elbow Treatment Duration (minutes) 8 Patient Position Sitting Coupling Medium Ultrasound Gel Applicator Size (cm2) 2 Frequency Setting (mHz) 3 Mode Setting Pulsed Duty Cycle 50% Intensity Setting (w/cm2) 1.0 PT-OP-T Assessment and Plan Start: 11/21/20 11:56 Freq: Status: Active Protocol: Document 12/27/20 12:00 DCW (Rec: 12/27/20 12:44 DCW [id number]) Physical Therapy Assessment Impairments Impairments Functional Activities, Functional Mobility,Pain, Strength,Tone Goals Two Impairment Pt demonstrate left checkering machine adjuster weakness, <50% of right checkering machine adjuster strength Linux Unix Administrator Goal (LTG) Pt to increase left checkering machine adjuster strength to within 25% (33.75 lbs) of right checkering machine adjuster strength to improve ability to carry bags into house. LTG Duration 01/21/21 One Impairment Pt does not have an appropriate home exercise program Short Term Goal (STG) Pt to be independent and compliant with an appropriate HEP STG Duration 12/21/20 Assessment Summary Assessment Pt optimistic about her improvement recently, but still somewhat frustrated about the length of time for recovery. Physical Therapy Plan Frequency and Duration Frequency of Treatment 2x/Week Duration of Treatment Two months Plan of Care Start Date 11/21/20 Plan of Care End Date 01/21/21 Therapeutic Interventions Therapeutic Interventions Home Exercise Program,Joint Mobilizations,Manual Therapy, Patient/Caregiver Education, Self-Care/Home Management,Soft Tissue Mobilization,Taping, Therapeutic Activities, Therapeutic Exercises Modalities Cold Pack/Ice Massage,Electric Stimulation,Hot Packs, Iontophoresis,Ultrasound Other Therapeutic Interventions Iontophoresis /c Dexamethasone 4 mg/mL Next Visit Focus/Plan Next Note Type Treatment Note Next Visit Plan STM, US, Iontophoresis, gentle strengthening
--- NOTE | 2020-12-30 11:20 | PT.OTN ---
Addendum entered and electronically signed by Kinjal Greco PTA 12/30/20 11:41: AIRAM Patel assisted under supervision FARHANA Layton with manual and education on stretching during this tx. Original Note: Current Diagnoses Lateral epicondylitis, left elbow (12/30/20) Physical Therapy Treatment Note PT-OP-A Visit Information Start: 11/21/20 11:56 Freq: Status: Active Protocol: Document 12/30/20 10:29 SP (Rec: 12/30/20 11:40 SP [id number]) Out-Patient Physical Therapy Visit Information Visit Information Visit Type Treatment Note Visit Start Time 10:30 Visit Stop Time 11:20 Total Visit Minutes 50 Visit Number 8 Number of AUTOMOTIVE REFINISHER Visits 1 Evaluation Information Evaluation Date 11/21/20 PT-OP-B Current Condition Start: 11/21/20 11:56 Freq: Status: Active Protocol: Document 11/21/20 11:15 DCW (Rec: 11/21/20 17:07 DCW [id number]) Current Condition History of Current Condition Onset Date ~6 months Current Complaints left lateral elbow discomfort History of Current Condition Pt is a 70 year old female presenting with a six month history of left lateral elbow pain. Pt notes that the pain is constantly in her elbow, but then has occasional instances of very brief pain down into her forearm or up into her shoulder, but it only lasts a few seconds. 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 PT-OP-C Subjective Start: 11/21/20 11:56 Freq: Status: Active Protocol: Document 12/30/20 10:29 SP (Rec: 12/30/20 11:40 SP [id number]) OP-PT Subjective Patient Comments Patient Comments Pt states no pain upon arrival , able to plan 150 bulbs over the weekend with no worsening. She stated feet got tangled up and fell landing on her hands, does have some pain in B UE fingers but doesn't feel needs to see physician. PT-OP-F Manual Assessment Start: 11/21/20 11:56 Freq: Status: Active Protocol: Document 11/21/20 11:15 DCW (Rec: 11/21/20 17:07 DCW [id number]) Manual Assessments Soft Tissue Assessment Soft Tissue Mobility Assessment Mild-moderate hypertonia along common extensor tendon/wrist extensors. Pt exhibits tenderness to palpation 2/4: Pain with wincing PT-OP-K Range of Motion Start: 11/21/20 11:56 Freq: Status: Active Protocol: Document 11/21/20 11:15 DCW (Rec: 11/21/20 17:07 [facility] [id number]) Elbow/Forearm Range of Motion Elbow/Forearm Left Active Elbow/Forearm ROM WFL Yes ROM Testing Position Sitting Wrist Goniometric Range of Motion Wrist Left Wrist ROM WFL Yes PT-OP-L Special Tests Start: 11/21/20 11:56 Freq: Status: Active Protocol: Document 11/21/20 11:15 DCW (Rec: 11/21/20 17:07 [facility] [id number]) Special Tests Elbow Special Tests Lateral Epicondylitis Extended Test Results Positive L PT-OP-M Strength Start: 11/21/20 11:56 Freq: Status: Active Protocol: Document 11/21/20 11:15 DCW (Rec: 11/21/20 17:07 [facility] [id number]) Wrist Strength Wrist Manual Muscle Testing Left Flexion (C7) 4+ Good+ Extension (C6) 4+ Good+ Ulnar Deviation 4+ Good+ Radial Deviation 4+ Good+ Hand Transport Conductor/Pinch Strength Hand Dominance Hand Dominance Right Hand Strength Right Transport Conductor (lbs) 45 Comments 3-trial average (40 lbs, 50 lbs, 45 lbs) Left Transport Conductor (lbs) 21.67 Comments 3-trial average (20 lbs, 20 lbs, 25 lbs) PT-OP-Q Treatments Start: 11/21/20 11:56 Freq: Status: Active Protocol: Document 12/30/20 10:29 SP (Rec: 12/30/20 11:40 SP [id number]) Therapeutic Exercises Sitting Exercises 1 Sitting Exercise Name Wrist flexion/extension stretching Side left Reps/Minutes 15s x2. Comments Manual in supine, sitting manual and self instructed, standing WB on table Manual Therapy Treatment Soft Tissue Mobilization 1 Body Location Left common extensor tendon, forearm Mobilization Type Cross-Friction,Strumming, Sustained Pressure,Trigger Point Release Intensity/Depth Moderate Body Position Supine Comments manual and instructed self application on MWM self sustained pressure over common extenors with wrist flex/ ext , forearm pron/ sup. Joint Mobilizations elbow mobs Joint lateral, medial, inferior ulnar mobs L Grade II Body Position Supine Comments performed with mobilization stretch around waist then shoulder, with humerus supported on rolled towel. PT-OP-R Modalities Start: 11/21/20 11:56 Freq: Status: Active Protocol: Document 12/30/20 10:29 SP (Rec: 12/30/20 11:40 SP [id number]) Iontophoresis Treatment Left Lateral Elbow Treatment Medication Dexamethasone (-) Medication Amount (mL) (ml) 1.0 Medication Dosage 4 mg/mL Treatment Polarity Negative to Negative Active Electrode Placement L Lateral epicondyle Treatment Duration (minutes) 5 Patient Tolerance Good Ultrasound Therapy Treatment Left Lateral Elbow Treatment Duration (minutes) 8 Patient Position Supine Coupling Medium Ultrasound Gel Applicator Size (cm2) 2 Frequency Setting (mHz) 3 Mode Setting Pulsed Duty Cycle 50% Intensity Setting (w/cm2) 1.0 PT-OP-T Assessment and Plan Start: 11/21/20 11:56 Freq: Status: Active Protocol: Document 12/30/20 10:29 SP (Rec: 12/30/20 11:40 SP [id number]) Physical Therapy Assessment Goals Two Impairment Pt demonstrate left hotel engineer weakness, <50% of right hotel engineer strength Program Development Manager Goal (LTG) Pt to increase left hotel engineer strength to within 25% (33.75 lbs) of right hotel engineer strength to improve ability to carry bags into house. LTG Duration 01/21/21 One Impairment Pt does not have an appropriate home exercise program Short Term Goal (STG) Pt to be independent and compliant with an appropriate HEP STG Duration 12/21/20 Assessment Summary Assessment Pt decreased finger pain end of tx. She tolerated manual STMs over L common extensor tendons and initiated unlar mobs with good feedback response, painfree. Provided education and instruction on self application stretching, MWM sustained gentle pressure over CET including eccentric flexion, pron/ sup of forearm for carryover at home with good understanding to progress relief outside of tx. Pt states also uses ice pack once in while. Pt understands remove iontophoresis patch after 6 hrs or sooner if notices adverse affects: redness, itching, irritation and dont submerge inwater. Pt was painfreel in L elbow end of tx and fingers BUE felt little better. Physical Therapy Plan Frequency and Duration Frequency of Treatment 2x/Week Duration of Treatment Two months Plan of Care Start Date 11/21/20 Plan of Care End Date 01/21/21 Therapeutic Interventions Therapeutic Interventions Home Exercise Program,Joint Mobilizations,Manual Therapy, Patient/Caregiver Education, Self-Care/Home Management,Soft Tissue Mobilization,Taping, Therapeutic Activities, Therapeutic Exercises Modalities Cold Pack/Ice Massage,Electric Stimulation,Hot Packs, Iontophoresis,Ultrasound Other Therapeutic Interventions Iontophoresis /c Dexamethasone 4 mg/mL Next Visit Focus/Plan Next Note Type Treatment Note Next Visit Plan assess response to added unlar mobs, instruction on self stretching and MWM STMs at home carry over added last tx. POC: STM, US, Iontophoresis, gentle strengthening
--- NOTE | 2021-01-03 14:55 | PT.OPDS ---
Current Diagnoses Lateral epicondylitis, left elbow (12/30/20) Visit Care Team Role Provider Type Liana Jenkins DO Attending Provider Physician Primary Care Provider Referring Provider Specialty: [facility] Address: [address] [place] [address], [address], [place], [address] Email: [email or web address] Visit Number Visit Number 8 Discharge Summary PT-OP-B Current Condition Start: 11/21/20 11:56 Freq: Status: Active Protocol: Document 11/21/20 11:15 DCW (Rec: 11/21/20 17:07 DC [id number]) Current Condition History of Current Condition Onset Date ~6 months Current Complaints left lateral elbow discomfort History of Current Condition Pt is a 70 year old female presenting with a six month history of left lateral elbow pain. Pt notes that the pain is constantly in her elbow, but then has occasional instances of very brief pain down into her forearm or up into her shoulder, but it only lasts a few seconds. Pt reports the pain does not really limit her from doing anything, labels it as about a 4/10, but notes she is careful carrying things, feels her left rn integrity doesn't feel as strong. PT-OP-C Subjective Start: 11/21/20 11:56 Freq: Status: Active Protocol: Document 12/30/20 10:29 SP (Rec: 12/30/20 11:40 SP [id number]) OP-PT Subjective Patient Comments Patient Comments Pt states no pain upon arrival , able to plan 150 bulbs over the weekend with no worsening. She stated feet got tangled up and fell landing on her hands, does have some pain in B UE fingers but doesn't feel needs to see physician. PT-OP-F Manual Assessment Start: 11/21/20 11:56 Freq: Status: Active Protocol: Document 11/21/20 11:15 DCW (Rec: 11/21/20 17:07 DCW [id number]) Manual Assessments Soft Tissue Assessment Soft Tissue Mobility Assessment Mild-moderate hypertonia along common extensor tendon/wrist extensors. Pt exhibits tenderness to palpation 2/4: Pain with wincing PT-OP-K Range of Motion Start: 11/21/20 11:56 Freq: Status: Active Protocol: Document 11/21/20 11:15 DCW (Rec: 11/21/20 17:07 DCW [id number]) Elbow/Forearm Range of Motion Elbow/Forearm Left Active Elbow/Forearm ROM WFL Yes ROM Testing Position Sitting Wrist Goniometric Range of Motion Wrist Left Wrist ROM WFL Yes PT-OP-L Special Tests Start: 11/21/20 11:56 Freq: Status: Active Protocol: Document 11/21/20 11:15 DCW (Rec: 11/21/20 17:07 DCW [id number]) Special Tests Elbow Special Tests Lateral Epicondylitis Extended Test Results Positive L PT-OP-M Strength Start: 11/21/20 11:56 Freq: Status: Active Protocol: Document 11/21/20 11:15 DCW (Rec: 11/21/20 17:07 DC [id number]) Wrist Strength Wrist Manual Muscle Testing Left Flexion (C7) 4+ Good+ Extension (C6) 4+ Good+ Ulnar Deviation 4+ Good+ Radial Deviation 4+ Good+ Hand Cheese Cook/Pinch Strength Hand Dominance Hand Dominance Right Hand Strength Right Cheese Cook (lbs) 45 Comments 3-trial average (40 lbs, 50 lbs, 45 lbs) Left Cheese Cook (lbs) 21.67 Comments 3-trial average (20 lbs, 20 lbs, 25 lbs) PT-OP-T Assessment and Plan Start: 11/21/20 11:56 Freq: Status: Active Protocol: Document 01/03/21 14:54 DCW (Rec: 01/03/21 14:55 DCW [id number]) Physical Therapy Assessment Assessment Summary Assessment Pt phoned clinic on 01/02/21, canceled all remaining appointments, requested discharge, no reason given. Physical Therapy Plan Discharge Physical Therapy Discharge Reasons Patient Request Next Visit Focus/Plan Next Note Type Discharge Summary
== END 2021-01-08 13:30 ==
LOC: PHYS 10:30
PROVIDERS: PCP Family Medicine; Referring Provider Family Medicine; Visit Provider Family Medicine
DX: M77.12 Lateral epicondylitis, left elbow (principal)
CPT/HCPCS: 97035; 97110; 97140; 97161

== ENCOUNTER → 2021-07-01 09:40 | Outpatient (CLI) | payer MEDICARE, OTHER, SELFPAY ==
--- NOTE | 2021-07-01 09:44 | DI.RAD.S_ITS ---
PROCEDURE: XR HAND LT MIN 3V INDICATIONS: rule out RA TECHNIQUE: 3 views of the hand(s) acquired. COMPARISON: None. FINDINGS: Bones: No acute, displaced fracture or dislocation. Multifocal degenerative change with joint space narrowing and osteophytosis, most prominently involving the 2nd and 3rd distal interphalangeal joints. Moderate to advanced arthrosis of the 1st carpometacarpal and triscaphe articulations. Carpal bones are normally aligned. No suspicious bony lesions. Soft tissues: No suspicious soft tissue calcifications. IMPRESSION: Multifocal degeneration as detailed above. Dictated by: Best Ferrera M.D. on 07/01/2021 at 10:44 Approved by: Best Ferrera M.D. on 07/01/2021 at 10:45
--- NOTE | 2021-07-01 09:44 | DI.RAD.S_ITS ---
PROCEDURE: XR HAND RT MIN 3V INDICATIONS: rule out RA TECHNIQUE: 3 views of the hand(s) acquired. COMPARISON: None. FINDINGS: Bones: No acute, displaced fracture or dislocations. Multifocal joint space narrowing with osteophytosis, most prominently involving the 2nd and 3rd distal interphalangeal joints. Mild to moderate joint space loss and osteophytosis about the 1st carpometacarpal articulation. Periarticular lucency involving the ulnar aspect of the 2nd proximal phalanx base. Carpal bones are normally aligned. No suspicious bony lesions. Soft tissues: No suspicious soft tissue calcifications. IMPRESSION: Multifocal degenerative change as detailed above. Dictated by: Best Ferrera M.D. on 07/01/2021 at 10:41 Approved by: Best Ferrera M.D. on 07/01/2021 at 10:44
[2021-07-01 10:41] LABS: Add Manual Diff / Slide Review NO; Basophils Absolute Auto 100 /uL (0-100); Eosinophils Absolute Auto 100 /uL (0-450); Eosinophils Percent Auto 1.5 % (2-4); Hematocrit 40.8 % (36-46); Hemoglobin 13.8 g/dL (12.0-16.0); Lymphocytes Absolute Auto 1600 /uL (1100-4500); Lymphocytes Percent Auto 27.6 % (25-40); Mean Corpuscular HGB Conc 33.8 % (30-36); Mean Corpuscular Hemoglobin 30.5 PG (26-34); Mean Corpuscular Volume 90.2 fL (80-100); Monocytes Absolute Auto 400 /uL (0-900); Monocytes Percent Auto 7.2 % (3-14); Neutrophils Absolute Auto 3600 /uL (1500-7000); Neutrophils Percent Auto 62.7 % (50-75); Platelet Count 285 X10^3/uL (150-400); Red Blood Cell Count 4.53 X10^6/uL (4.0-5.2); Red Cell Distribution Width 14.1 % (11.6-14.8); White Blood Cell Count 5.7 X10^3/uL (4.5-11.0)
[2021-07-01 11:12] LABS: Alanine Aminotransferase 26 IU/L (<35); Albumin 4.2 g/dL (3.5-5.0); Albumin Globulin Ratio 1.7 (1.0-2.8); Alkaline Phosphatase 90 U/L (38-126); Aspartate Aminotransferase 33 IU/L (14-36); BUN Creatinine Ratio 17.2 (6-22); Bilirubin Total 0.5 mg/dL (0.2-1.3); Blood Urea Nitrogen 10 mg/dL (7-17); C-Reactive Protein Quant < 0.5 mg/dL (<1.0); Calcium 9.4 mg/dL (8.4-10.2); Carbon Dioxide 29 mmol/L (22-32); Chloride 104 mmol/L (98-107); Estimated Glomerular Filt Rate > 60 mL/min (>60); Globulin 2.5 g/dL (1.7-4.1); Glucose 88 mg/dL (80-110); HEMOLYSIS < 15 (0-50); Potassium 4.4 mmol/L (3.4-5.1); Rheumatoid Factor < 8.6 IU/mL (<12.0); Sodium 140 mmol/L (137-145); Total Protein 6.7 g/dL (6.3-8.2)
[2021-07-03 21:07] LABS: CCP Antibodies IgG/IgA <1 units (0-19)
== END ==
PROVIDERS: PCP Family Medicine; Referring Provider Family Medicine; Visit Provider Family Medicine
DX: M18.12 Unilateral primary osteoarthritis of first carpometacarpal joint, left hand (principal); M19.032 Primary osteoarthritis, left wrist; M25.541 Pain in joints of right hand; M25.542 Pain in joints of left hand; M25.50 Pain in unspecified joint
CPT/HCPCS: 36415; 73130; 80053; 85025; 86140; 86200; 86430

== ENCOUNTER → 2022-03-09 08:44 | Outpatient (CLI) | payer MEDICARE, OTHER, SELFPAY ==
[2022-03-09 11:15] LABS: Add Manual Diff / Slide Review NO; Basophils Absolute Auto 100 /uL (0-100); Basophils Percent Auto 1.1 % (0-2); Eosinophils Absolute Auto 100 /uL (0-450); Eosinophils Percent Auto 1.6 % (2-4); Hematocrit 41.4 % (36-46); Hemoglobin 13.8 g/dL (12.0-16.0); Lymphocytes Absolute Auto 1700 /uL (1100-4500); Mean Corpuscular HGB Conc 33.2 % (30-36); Mean Corpuscular Volume 90.2 fL (80-100); Monocytes Absolute Auto 400 /uL (0-900); Monocytes Percent Auto 7.1 % (3-14); Neutrophils Absolute Auto 3500 /uL (1500-7000); Neutrophils Percent Auto 61.2 % (50-75); Platelet Count 280 X10^3/uL (150-400); Red Blood Cell Count 4.59 X10^6/uL (4.0-5.2); Red Cell Distribution Width 14.4 % (11.6-14.8); White Blood Cell Count 5.8 X10^3/uL (4.5-11.0)
[2022-03-09 11:43] LABS: Alanine Aminotransferase 19 IU/L (<35); Albumin 4.2 g/dL (3.5-5.0); Albumin Globulin Ratio 1.7 (1.0-2.8); Alkaline Phosphatase 91 U/L (38-126); Aspartate Aminotransferase 23 IU/L (14-36); BUN Creatinine Ratio 20.6 (6-22); Bilirubin Total 0.6 mg/dL (0.2-1.3); Blood Urea Nitrogen 13 mg/dL (7-17); Calcium 9.3 mg/dL (8.4-10.2); Carbon Dioxide 29 mmol/L (22-32); Chloride 101 mmol/L (98-107); Estimated Glomerular Filt Rate > 60 mL/min (>60); Globulin 2.5 g/dL (1.7-4.1); Glucose 86 mg/dL (80-110); HEMOLYSIS < 15 (0-50); Potassium 4.8 mmol/L (3.4-5.1); Sodium 137 mmol/L (137-145); Total Protein 6.7 g/dL (6.3-8.2)
[2022-03-09 11:57] LABS: Vitamin D 25 Hydroxy (D3) 41.7 ng/mL (30.0-100.0)
[2022-03-09 12:13] LABS: TSH w/ Reflex to FT4 2.31 uIU/mL (0.47-4.68)
== END ==
PROVIDERS: PCP Family Medicine; Referring Provider Family Medicine; Visit Provider Family Medicine
DX: E56.9 Vitamin deficiency, unspecified (principal); I10 Essential (primary) hypertension; Z85.528 Personal history of other malignant neoplasm of kidney
CPT/HCPCS: 36415; 80053; 82306; 84443; 85025

== ENCOUNTER 2022-11-30 07:49 | Emergency (ER) | payer MEDICARE, OTHER, SELFPAY ==
[2022-11-30 07:50] VITALS: BP 146/85
[2022-11-30 07:51] VITALS: PULSE 79; RESP 17; O2SAT 96
--- NOTE | 2022-11-30 07:55 | ED_ITS ---
HPI - General Adult General Chief complaint: Upper Respiratory Symptoms Stated complaint: Shortness of breath Covid + Time Seen by Provider: 11/30/22 07:51 Source: patient and EMS Mode of arrival: EMS Limitations: no limitations History of Present Illness HPI narrative: Patient is a 72-year-old female. She states that yesterday she was positive for COVID. States yesterday she had a similar episode that occurred this morning. States she felt like she would quite a bit of chest congestion was coughing and then wheezing. Yesterday she was able to clear the symptoms but today was unable to do so. She panic somewhat this morning when she could not breathe. This is why she contacted EMS. EMS arrived stating that her oxygen saturations were in the mid upper 90s on room air. They did put her on 2 L nasal cannula just for respiratory support. Initially she reported that she had a fever but upon arrival here to the ER she was afebrile. She did not take any antipyretics. No rashes. No underlying lung pathology. At the time my evaluation she was not on oxygen. Related Data Home Medications Medication Instructions Recorded Confirmed cholecalciferol (vitamin D3) 25 1,000 unit PO QDAY ##0 11/23/16 10/27/22 mcg (1,000 unit) tablet (Vitamin D3) multivitamin (Multiple Vitamins 1 tab PO QDAY ##0 11/23/16 10/27/22 tablet) Previous Rx's Medication Instructions Recorded etodolac 400 mg tablet See Rx Instructions .Route 05/26/22 .COMPLEX #180 tabs ondansetron 4 mg disintegrating See Rx Instructions .Route 08/12/22 tablet .COMPLEX #20 tabs escitalopram oxalate 20 mg tablet 20 mg PO DAILY #90 tabs 10/27/22 metoprolol succinate 25 mg 12.5 mg PO DAILY #30 tabs 10/27/22 tablet,extended release 24 hr escitalopram oxalate 10 mg tablet 10 mg PO DAILY #90 tabs 11/06/22 hydrocodone 5 mg-acetaminophen 325 1 tab PO BEDTIME PRN pain #20 tabs 11/11/22 mg tablet nirmatrelvir 300 mg (150 mg See Rx Instructions PO .COMPLEX 11/30/22 x2)-ritonavir 100 mg tablet,dose #30 ea pack (Paxlovid) Allergies Allergy/AdvReac Type Severity Reaction Status Date / Time black pepper Allergy Mild Verified 10/27/22 10:33 amlodipine AdvReac Mild Swelling Verified 10/27/22 10:33 of upper & lower eyelids lisinopril AdvReac Mild Cough Verified 10/27/22 10:33 Review of Systems Constitutional Constitutional: Reports system reviewed and no additional complaints, except as documented Respiratory Respiratory: Reports system reviewed and no additional complaints, except as documented Gastrointestinal Gastrointestinal: Reports system reviewed and no additional complaints, except as documented Integumentary/Breasts Skin/Breast: Reports system reviewed and no additional complaints, except as documented Neurologic Neurologic: Reports system reviewed and no additional complaints, except as documented Hematologic/Lymphatic On Anticoagulants: No Patient History Medical History Depression Fibromyalgia History of renal cell cancer Nocturnal hypoxemia Obesity (BMI 30.0-34.9) Obstructive sleep apnea Osteoarthritis (1999) Osteoarthritis, multiple sites Surgical History Anesthesia History of partial nephrectomy Family History Father Cancer Lung cancer Mother Cancer Pancreatic cancer Depression Anxiety Dementia Sister Age: 75 Breast cancer Skin cancer Restless leg Social History Smoking Status: Never smoker Smoking Status: Never smoker alcohol intake frequency: 0-2 drinks per day Substance Use Type: does not use Exam Initial Vital Signs Initial Vital Signs: Vital Signs Temperature 99.4 F 11/30/22 07:56 Pulse Rate 76 11/30/22 07:56 Respiratory Rate 20 11/30/22 07:56 Blood Pressure 145/83 H 11/30/22 07:56 Pulse Oximetry 97 11/30/22 07:56 Oxygen Delivery Method Nasal Cannula 11/30/22 07:56 Oxygen Flow Rate 4 11/30/22 07:56 Const General: cooperative, comfortable and No ill appearing HENMT Head: normal to inspection and normocephalic Resp Effort & Inspection: normal respiratory effort Auscultation: clear to auscultation bilaterally Skin General: no rashes or lesions noted Neuro General: patient alert, patient awake, patient oriented x3 and moves all extremities Extrem Other: No gross deformities Course Vital Signs Vital signs: Vital Signs - 8 hr 11/30/22 07:56 Temperature 99.4 F Pulse Rate 76 Respiratory Rate 20 Blood Pressure 145/83 H Pulse Oximetry 97 Oxygen Delivery Method Nasal Cannula Oxygen Flow Rate 4 Medical Decision Making MDM Narrative Medical decision making narrative: Patient was afebrile. Was not hypoxic. Oxygen saturations greater than 95% on room air. Her lungs were clear. She was positive for COVID yesterday. No indication to retest today. No indication for any radiologic studies. Respiratory rate was 20. She does not have underlying lung pathology. We had a discussion about Paxlovid. We discussed the risks and benefits of this m edication. She opted to start this medicine. Will discharge patient home with return precautions. Discharge Plan Departure Patient Disposition: Home Clinical Impression: COVID-19 Instructions: COVID-19 Activity Restrictions/Additional Instructions: You can continue to take all of your medications as directed. After our discussion you did opt to receive a prescription for Paxlovid. Please take it as directed. It was sent to [facility]. You can try [id number] cough and cold preparations to try to help with h your other symptoms such as chest congestion and cough. Contact your primary doctor for a follow-up. Follow all current CDC guidelines with regard to quarantine. The most up-to-date guidelines can be found on the CDC website. Return to the emergency department for worsening shortness of breath Prescriptions: New Paxlovid 300 mg (150 mg x 2)-100 mg tablets,dose pack See Rx Instructions .ROUTE .COMPLEX Qty: 30 0RF Rx Instructions: take TWO 150 mg tablets of nirmatrelvir with ONE 100 mg tablet of ritonavir twice daily for 5 days No Action escitalopram oxalate 20 mg tablet 20 mg PO DAILY Qty: 90 3RF Rx Instructions: Take one tablet daily with 10mg tablet for a total of 30mg daily metoprolol succinate 25 mg tablet extended release 24 hr 12.5 mg PO DAILY Qty: 30 1RF Rx Instructions: Take 1/2 daily for high blood pressure multivitamin [Multiple Vitamins] 1 EACH tablet 1 tab PO QDAY Qty: 0 cholecalciferol (vitamin D3) [Vitamin D3] 1,000 UNIT tablet 1,000 unit PO QDAY Qty: 0 etodolac 400 mg tablet See Rx Instructions .ROUTE .COMPLEX Qty: 180 3RF Dose Instruction: TAKE 1 TABLET BY MOUTH TWICE DAILY Rx Instructions: TAKE 1 TABLET BY MOUTH TWICE DAILY ondansetron 4 mg tablet,disintegrating See Rx Instructions .ROUTE .COMPLEX Qty: 20 2RF Dose Instruction: DISSOLVE 1 TABLET ON THE TONGUE THREE TIMES DAILY NEEDED FOR NAUSEA OR VOMITING Rx Instructions: DISSOLVE 1 TABLET ON THE TONGUE THREE TIMES DAILY NEEDED FOR NAUSEA OR VOMITING escitalopram oxalate 10 mg tablet 10 mg PO DAILY Qty: 90 3RF Rx Instructions: Take one tablet once daily in addition to the 20mg for 30mg total daily hydrocodone-acetaminophen 5-325 mg tablet 1 tab PO BEDTIME PRN (Reason: pain) Qty: 20 0RF Referrals: Liana Jenkins DO [Primary Care Provider] - Stand Alone Forms: Patient Portal/API
[2022-11-30 07:56] VITALS: BP 145/83; PULSE 76; RESP 20; TEMP 37.4; O2SAT 97; BMI 34.0
[2022-11-30 08:00] VITALS: BP 145/83; PULSE 77; RESP 18; O2SAT 94
[2022-11-30 08:37] VITALS: BP 142/68; PULSE 78; RESP 18; O2SAT 94
== END 2022-11-30 08:39 | disposition home or self-care (01) ==
PROVIDERS: Emergency Provider Emergency Medicine; PCP Family Medicine
DX: U07.1 COVID-19 (principal)
CPT/HCPCS: 99284

== ENCOUNTER → 2023-04-06 14:21 | Outpatient (CLI) | payer MEDICARE, OTHER, SELFPAY ==
[2023-04-06 23:13] LABS: Appearance Urine UA SL CLOUDY; Bilirubin Urine UA 2+ (NEGATIVE); Color Urine UA YELLOW; Glucose Urine UA NEGATIVE (Negative); Ketones Urine UA 1+ (NEGATIVE); Leukocyte Esterase Urine UA TRACE (NEGATIVE); Nitrite Urine UA NEGATIVE (Negative); Occult Blood Urine UA NEGATIVE (Negative); Protein Urine UA TRACE (Negative); Specific Gravity Urine UA 1.025 (1.000-1.035)
[2023-04-06 23:36] LABS: Urine Volume 10mL (spun); pH Urine UA 6.5 (4.5-8.0)
[2023-04-06 23:37] LABS: RBC Urine 1-5/HPF (0-5/HPF); WBC Urine 30-100/HPF (0-5/HPF)
[2023-04-06 23:38] LABS: Bacteria Urine Few (2-10); Calcium Oxalate Crystals Urine Moderate; Culture Indicated Urine Specimen Cultured; Mucus Urine 2+ (Negative); Squamous Epithelial Cell Urine 5-10 /HPF (0-5/HPF)
== END ==
PROVIDERS: PCP Student in an Organized Health Care Education/Training Program; Visit Provider Student in an Organized Health Care Education/Training Program
DX: N39.0 Urinary tract infection, site not specified (principal)
CPT/HCPCS: 81001; 87086

== ENCOUNTER → 2023-10-11 10:59 | Outpatient (CLI) | payer MEDICARE, OTHER, SELFPAY ==
[2023-10-11 12:11] LABS: Add Manual Diff / Slide Review NO; Basophils Absolute Auto 0 /uL (0-100); Basophils Percent Auto 0.5 % (0-2); Eosinophils Absolute Auto 100 /uL (0-450); Eosinophils Percent Auto 1.3 % (2-4); Hematocrit 41.1 % (36-46); Hemoglobin 13.6 g/dL (12.0-16.0); Lymphocytes Absolute Auto 2000 /uL (1100-4500); Lymphocytes Percent Auto 26.5 % (25-40); Mean Corpuscular HGB Conc 33.1 % (30-36); Mean Corpuscular Hemoglobin 30.3 PG (26-34); Mean Corpuscular Volume 91.5 fL (80-100); Monocytes Absolute Auto 500 /uL (0-900); Monocytes Percent Auto 6.3 % (3-14); Neutrophils Absolute Auto 4900 /uL (1500-7000); Neutrophils Percent Auto 65.4 % (50-75); Platelet Count 299 X10^3/uL (150-400); Red Blood Cell Count 4.49 X10^6/uL (4.0-5.2); Red Cell Distribution Width 14.2 % (11.6-14.8); White Blood Cell Count 7.5 X10^3/uL (4.5-11.0)
[2023-10-11 12:25] LABS: Hemoglobin A1C% w Est Avg Glu 5.5 % (4.0-6.0)
[2023-10-11 12:44] LABS: Alanine Aminotransferase 19 IU/L (<35); Albumin Globulin Ratio 1.7 (1.0-2.8); Alkaline Phosphatase 101 U/L (38-126); Aspartate Aminotransferase 27 IU/L (14-36); BUN Creatinine Ratio 21.9 (6-22); Bilirubin Total 0.6 mg/dL (0.2-1.3); Blood Urea Nitrogen 14 mg/dL (7-17); Calcium 9.4 mg/dL (8.4-10.2); Carbon Dioxide 24 mmol/L (22-32); Chloride 105 mmol/L (98-107); Estimated Glomerular Filt Rate > 60 mL/min (>60); Globulin 2.3 g/dL (1.7-4.1); Glucose 93 mg/dL (80-110); HEMOLYSIS < 15 (0-50); Potassium 4.6 mmol/L (3.4-5.1); Sodium 136 mmol/L (137-145); Total Protein 6.3 g/dL (6.3-8.2)
[2023-10-11 13:09] LABS: TSH w/ Reflex to FT4 1.78 uIU/mL (0.47-4.68)
== END ==
PROVIDERS: PCP Student in an Organized Health Care Education/Training Program; Referring Provider Student in an Organized Health Care Education/Training Program; Visit Provider Student in an Organized Health Care Education/Training Program
DX: R53.83 Other fatigue (principal)
CPT/HCPCS: 36415; 80053; 83036; 84443; 85025

== ENCOUNTER → 2023-10-13 | Outpatient (CLI) | payer MEDICARE, OTHER, SELFPAY ==
--- NOTE | 2023-10-13 09:17 | DI.CT.S_ITS ---
PROCEDURE: CT ABDOMEN PELVIS WO/W CON INDICATIONS: flank pain, hx of kidney cancer TECHNIQUE: After the administration of oral contrast, 5 mm thick sections acquired from the diaphragms to the iliac crests. After the administration of intravenous contrast, 5 mm thick sections acquired from the diaphragms to the symphysis. 5 mm thick coronal and sagittal reformats were acquired. For radiation dose reduction, the following was used: automated exposure control, adjustment of mA and/or kV according to patient size. COMPARISON: None. FINDINGS: Image quality: Diagnostic. Lower Chest: Bilateral lower lobe linear atelectasis/scar. Mild cardiomegaly. Small hiatal hernia. ABDOMEN: Liver: No solid mass. Subcentimeter hypodensity in the hepatic dome is too small to characterize. Gallbladder: No radiopaque gallstones or wall thickening. Biliary ducts: No biliary dilation. Pancreas: No ductal dilation. Spleen: Size is within normal limits. Adrenal Glands: No adrenal nodules. Kidneys and Ureters: Noncontrast series demonstrates a left interpolar nonobstructive nephrolith measuring 2 mm (2/33). Left interpolar cortical thinning (4/27) or or. Excretory phase demonstrates no hydronephrosis. There are bilateral parapelvic. No suspicious filling defect in the collecting system, where opacified. No hydronephrosis. No solid mass. Bilateral subcentimeter cortical hypodensities are too small to characterize, statistically cysts. No complex measuring renal cystic lesion which requires follow up. Stomach and Bowel: Normal colonic caliber, without significant wall thickening. Extensive sigmoid and colonic diverticulosis, without diverticulitis. Peritoneum: No abnormal intraperitoneal fluid. No free air. Ventral Wall: No significant ventral hernia. Abdominal Nodes: No retroperitoneal or mesenteric adenopathy by size criteria. Vessels: Aorta and inferior vena cava are normal in size. Abdominal aorta is tortuous. Bilateral renal arteries are patent with no significant stenosis. Left upper pole accessory renal artery. PELVIS: Pelvic Organs: Unremarkable. Bladder: No bladder wall thickening, accounting for underdistention. Pelvic Nodes: No enlarged lymph nodes. Miscellaneous: No inguinal hernias are seen. Bones: No aggressive osseous abnormality. No acute fractures. Marked multilevel degenerative changes of the spine. Straightening of the normal lumbar lordosis. Grade 1 anterolisthesis of L5 on S1. Levoconvex curvature of the thoracolumbar spine with apex at L1-L2. IMPRESSION: Bilateral parapelvic cysts with no hydronephrosis bilaterally. Left interpolar nonobstructive nephrolith measuring 2 mm. No solid renal mass. Left interpolar cortical thinning which may reflect sequela of prior intervention. Left interpolar cortical thinning which may sequela prior intervention. Dictated by: George Bronson M.D. on 10/14/2023 at 17:24 Approved by: George Bronson M.D. on 10/18/2023 at 12:56
--- NOTE | 2023-10-13 09:17 | DI.US.S_ITS ---
ULTRASOUND OF LEFT AXILLA: 10/13/2023 CLINICAL: Palpable left axilla lump. No prior exams were available for comparison. Real-time ultrasound of the left axilla was performed. Winchester scale images of the real-time examination were reviewed. No significant abnormalities were seen sonographically in the left axilla. Specifically, no finding to correspond to the patient's palpable abnormality. IMPRESSION: NEGATIVE There is no sonographic correlate to the patient's palpable abnormality and no evidence of malignancy. Return to annual mammogram screening schedule is recommended. Findings and recommendations were conveyed to the patient at time of exam. This exam was interpreted at Station ID: [id number]. Electronically Signed By: Frida meraz/:10/21/2023 08:49:28 copy to: Liana Jenkins letter sent: Normal Exam Ultrasound BI-RADS: 1 Negative
== END ==
PROVIDERS: PCP Student in an Organized Health Care Education/Training Program; Referring Provider Student in an Organized Health Care Education/Training Program; Visit Provider Student in an Organized Health Care Education/Training Program
DX: D17.20 Benign lipomatous neoplasm of skin and subcutaneous tissue of unspecified limb (principal); N28.1 Cyst of kidney, acquired; R10.9 Unspecified abdominal pain; I51.7 Cardiomegaly; K44.9 Diaphragmatic hernia without obstruction or gangrene; K57.30 Diverticulosis of large intestine without perforation or abscess without bleeding; Z85.528 Personal history of other malignant neoplasm of kidney
CPT/HCPCS: 74178; 76882; Q9967